=== PATIENT | female | born 1955 | race Caucasian/White ===

== ENCOUNTER 2017-10-05 07:59 | Outpatient (CLI) | payer MEDICARE, MEDICAID ==
[2017-10-05] MEDS ORDERED: Gadobenate Dimeglumine 529 MG/1 ML (20ML VIAL) ONE (09:00)
--- NOTE | 2017-10-05 11:57 | MRI ---
MRI OF THE ABDOMEN WITH AND WITHOUT IV CONTRAST: INDICATION: History of right hepatic lobe liver lesion and cirrhosis. COMPARISON: CT of the abdomen and pelvis dated 05/14/17, abdominal ultrasound dated 09/28/17, CT of the abdomen wi th and without contrast dated 08/15/16, and a CT examination of the abdomen and pelvis dated 11/18/13. TECHNIQUE: Multiplanar, multisequence MR images were obtained in the abdomen utilizing liver mass protocol. 17 cc of MultiHance was utilized for the examination. FINDINGS: The suspicious lesion within segment 6 of the right hepatic lobe measures up to 2.2 cm in size and is T2 hyperintense, with T1 hyperintensity with signal dropout consistent with some internal fat signal . The lesion demonstrates peripheral heterogeneous arterial enhancement with washout on the portal v enous and delayed phases. There is a cirrhotic morphology of the liver. No additional focal arterially enhancing lesion eviden t. The spleen is enlarged measuring 14.6 cm. There is a 1.5 cm exophytic cyst off the superior pole left kidney. There is a 1.5 cm cyst seen within the superior pole of the left kidney. There is a s mall subcentimeter cyst seen within the left kidney. No hydronephrosis is evident. No enlarged lymp h nodes are present. Visualized pancreas appears within normal limits. Respiratory motion artifact on the delayed phase images slightly limits image detail. There is recanalization of the umbilical v ein. There is mild ascites present surrounding the right hepatic lobe. IMPRESSION: 1. A 2.1 cm lesion with some internal fat signal intensity and hyperenhancement is suspicious for hep atocellular carcinoma. With the size of the lesion and presence of washout and capsule, this would b e consistent with an LR5B LI-RADS categorization. 2. Cirrhosis with findings of portal hypertension. 3. Left renal cyst. POS: [facility]
== END 2017-10-05 08:00 | disposition home or self-care (01) ==
LOC: SCSMRI 07:59
PROVIDERS: ATTEND Family Medicine
DX: R16.0 Hepatomegaly, not elsewhere classified (principal); K74.60 Unspecified cirrhosis of liver; K76.6 Portal hypertension; N28.1 Cyst of kidney, acquired
CPT/HCPCS: 74183; A9579

== ENCOUNTER 2018-12-29 11:52 | Outpatient (CLI) | payer MEDICARE, MEDICAID ==
--- NOTE | 2019-03-25 09:32 | MMO ---
Bilateral MAMMO Bilat Screen [facility]. CLINICAL HISTORY: Patient is 63 years old and is seen for screening. The patient has no family history of breast cancer. The patient has no personal history of cancer. VIEWS: The views performed were: bilateral craniocaudal with tomosynthesis and bilateral mediolateral oblique with tomosynthesis. FILMS COMPARED: The present examination has been compared to a prior imaging study performed at [facility] on 07/12/2009. MAMMOGRAM FINDINGS: There are scattered fibroglandular densities. There are benign appearing calcifications seen in both breasts. There are no suspicious masses, suspicious calcifications, or new areas of architectural distortion. IMPRESSION: THERE IS NO MAMMOGRAPHIC EVIDENCE OF MALIGNANCY. A ROUTINE FOLLOW-UP MAMMOGRAM IN 1 YEAR IS RECOMMENDED. THE RESULTS OF THIS EXAM WERE SENT TO THE PATIENT. ACR BI-RADS Category 2 - Benign finding MAMMOGRAPHY NOTE: 1. A negative mammogram report should not delay a biopsy if a dominant of clinically suspicious mass is present. 2. Approximately 10% to 15% of breast cancers are not detected by mammography. 3. Adenosis and dense breasts may obscure an underlying neoplasm.
== END 2018-12-29 11:53 | disposition home or self-care (01) ==
LOC: BICMAMMO 11:52
PROVIDERS: ATTEND Family Medicine
DX: Z12.31 Encounter for screening mammogram for malignant neoplasm of breast (principal)
CPT/HCPCS: 77063; 77067

== ENCOUNTER 2019-02-10 02:02 | Inpatient (IN) | payer MEDICARE, MEDICAID ==
[2019-02-10] MEDS ORDERED: Morphine 4 MG/ML VIAL ONE (03:09)
[2019-02-10] MEDS ORDERED: Ondansetron PF 4 MG/2 ML Vial ONE ×2 (03:09→08:24)
[2019-02-10 03:12] LABS: #Lymphocytes 1.4 thou/uL (1.20-3.40); #Monocytes 0.4 thou/uL (0.11-0.59); #Neutrophils 9.6 thou/uL (1.40-6.50); %Basophils 0.2 % (0.0-1.0); %Eosinophils 0.4 % (0.0-10.0); %Lymphocytes 12.3 % (21.0-51.0); %Monocytes 3.4 % (0.0-10.0); %Neutrophils 83.7 % (42.0-75.0); Hemoglobin 11.4 g/dL (12.0-16.0); Mean Corpuscular HGB CONC 33.9 g/dL (32.0-36.0); Mean Corpuscular Hemoglobin 31.5 pg (27.0-31.0); Mean Corpuscular Volume 92.7 fL (78.0-98.0); Mean Platelet Volume 7.2 fL (7.4-10.4); Platelet Count 246 thou/uL (130-400); RBC Distribution Width 16.8 % (11.5-14.5); Red Blood Cell (RBC) Count 3.63 mill/uL (4.20-5.40); White Blood Cell (WBC) Count 11.5 thou/uL (4.8-10.8)
[2019-02-10 03:33] LABS: ALT (SGPT) 42 U/L (8-55); AST (SGOT) 26 U/L (5-34); Albumin 3.9 g/dL (3.4-4.8); Alkaline Phosphatase 157 U/L (40-150); Anion Gap 18 mmol/L (10-20); BUN (Urea Nitrogen) 19 mg/dL (9.8-20.1); Bilirubin, Total 0.8 mg/dL (0.2-1.2); Calc. Creatinine Clearance 0 mL/min (70-130); Calcium 9.9 mg/dL (7.8-10.44); Carbon Dioxide 20 mmol/L (23-31); Chloride 103 mmol/L (98-107); Estimated GFR-MDRD 61; Globulin 3.5 g/dL (2.4-3.5); Glucose 181 mg/dL (80-115); Potassium 3.8 mmol/L (3.5-5.1); Protein, Total 7.4 g/dL (6.0-8.3); Sodium 137 mmol/L (136-145)
[2019-02-10 04:11] LABS: INR-International Normal Ratio 1.1; Prothrombin Time 13.9 SEC (12.0-14.7)
[2019-02-10] MEDS ORDERED: Promethazine HCl 25 MG/ML VIAL ONE (04:51)
--- NOTE | 2019-02-10 06:18 | PDOC.FPRHP ---
- History of Present Illness Chief Complaint: vomiting & diarrhea History of Present Illness: 63 yo F presents with 1 day non bloody emesis & diarrhea. Pt underwent liver transplant 3 week ago for liver CA/cirrhosis at [facility]. Had appt today. Since then has not experienced any illnesses, taking all her prescribed meds. Sick contact includes granddaughter. Denies recent travel or eating odd foods. Patient endorses abd pain only an incision sites. Denies fevers, chills, rash. ED Course: phenergan, zofran - Allergies/Adverse Reactions Allergies Allergy/AdvReac Type Severity Reaction Status Date / Time iodine Allergy Severe Short of Verified 04/14/16 21:18 Breath - Home Medications Medication Instructions Recorded Confirmed Type Albuterol Sulfate [Albuterol 0.63 mg NEB Q6HR PRN 04/14/16 02/25/17 History Sulfate Neb] Albuterol Sulfate [Ventolin HFA] 2 puff INH Q6HR PRN 04/14/16 02/25/17 History Lisinopril/Hydrochlorothiazide 2 tablet PO DAILY 04/14/16 02/25/17 History [Lisinopril-Hctz 20-12.5 mg Tab] Metoprolol Tartrate [Lopressor] 100 mg PO DAILY 04/14/16 02/25/17 History Omeprazole 40 mg PO DAILY 04/14/16 02/25/17 History metFORMIN HCl [Glucophage] 1,000 mg PO BID-WM 04/14/16 02/25/17 History traZODone 100 mg PO HS 04/14/16 02/25/17 History Gabapentin [Neurontin] 100 mg PO BID #0 cap 04/15/16 02/25/17 Rx Atorvastatin Calcium [Lipitor] 20 mg PO DAILY 08/04/16 02/25/17 History tiZANidine HCl [Tizanidine HCl] 4 mg PO QID PRN 08/04/16 02/25/17 History Ferrous Sulfate [Feosol] 325 mg PO BID-WM tab 02/27/17 Rx Insulin Detemir 100 UNITS/ML 74 units SC QAM vial 02/27/17 Rx [Levemir] - History PMHx: PSHx: FHx: Social: - Review of Systems General: reports: weight/appetite/sleep changes. denies: fever/chills Eyes: denies: vision changes ENT: denies: nasal congestion, rhinorrhea Respiratory: denies: cough, congestion, shortness of breath Cardiovascular: denies: chest pain, palpitation Gastrointestinal: reports: nausea, vomiting, diarrhea, abdominal pain. denies: GI bleeding Genitourinary: denies: dysuria Skin: denies: rashes, lesions Musculoskeletal: reports: pain. denies: tenderness, stiffness Neurological: reports: weakness. denies: seizure - Vital signs 135/79, Pulse: 97, Resp: 18, Temp: 99.3 (Oral), Pain: 5, O2 sat: 97 on 2L Oxygen , Time: 02/10/2019 06:00. - Physical Exam Constitutional: NAD -Constitutional: lethargic HEENT: normocephalic and atraumatic, PERRLA, EOMI, conjunctiva clear -HEENT: dry mucosal membranes Neck: supple, FROM -Chest: stapled incision on upper left chest Heart: RRR, normal S1/S2 Lungs: CTAB, no respiratory distress, good air movement Abdomen: soft, bowel sounds present -Abdomen: tender at stapled incision sites Musculoskeletal: normal structure, ROM grossly normal Neurological: no focal deficit Skin: no rash/lesions, no jaundice Heme/Lymphatic: no unusual bruising or bleeding FMR H&P: Results - Labs Result Diagrams: 02/10/19 03:01 02/10/19 03:01 Lab results: WBC 11.5 thou/uL (4.8-10.8) H 02/10/19 03:01 Hgb 11.4 g/dL (12.0-16.0) L 02/10/19 03:01 Hct 33.6 % (36.0-47.0) L 02/10/19 03:01 MCV 92.7 fL (78.0-98.0) 02/10/19 03:01 Plt Count 246 thou/uL (130-400) 02/10/19 03:01 Neutrophils % 83.7 % (42.0-75.0) H 02/10/19 03:01 Sodium 137 mmol/L (136-145) 02/10/19 03:01 Potassium 3.8 mmol/L (3.5-5.1) 02/10/19 03:01 Chloride 103 mmol/L (98-107) 02/10/19 03:01 Carbon Dioxide 20 mmol/L (23-31) L 02/10/19 03:01 BUN 19 mg/dL (9.8-20.1) 02/10/19 03:01 Creatinine 0.93 mg/dL (0.6-1.1) 02/10/19 03:01 Glucose 181 mg/dL (80-115) H 02/10/19 03:01 Lactic Acid 1.6 mmol/L (0.5-2.2) 02/10/19 03:01 Calcium 9.9 mg/dL (7.8-10.44) 02/10/19 03:01 Total Bilirubin 0.8 mg/dL (0.2-1.2) 02/10/19 03:01 AST 26 U/L (5-34) 02/10/19 03:01 ALT 42 U/L (8-55) 02/10/19 03:01 Alkaline Phosphatase 157 U/L (40-150) H 02/10/19 03:01 Serum Total Protein 7.4 g/dL (6.0-8.3) 02/10/19 03:01 Albumin 3.9 g/dL (3.4-4.8) 02/10/19 03:01 FMR H&P: A/P - Problem List (1) Liver transplant recipient Current Visit: Yes Status: Acute Code(s): Z94.4 - LIVER TRANSPLANT STATUS (2) Vomiting and diarrhea Current Visit: No Status: Acute Code(s): R11.10 - VOMITING, UNSPECIFIED; R19.7 - DIARRHEA, UNSPECIFIED (3) COPD (chronic obstructive pulmonary disease) Current Visit: No Status: Chronic Qualifiers: COPD type: unspecified COPD Qualified Code(s): J44.9 - Chronic obstructive pulmonary disease, unspecified (4) Diabetes mellitus type 2 in obese Current Visit: No Status: Chronic Code(s): E11.9 - TYPE 2 DIABETES MELLITUS WITHOUT COMPLICATIONS; E66.9 - OBESITY, UNSPECIFIED (5) History of liver cancer Current Visit: No Status: Chronic Code(s): Z85.05 - PERSONAL HISTORY OF MALIGNANT NEOPLASM OF LIVER (6) Hypertension Current Visit: No Status: Chronic Code(s): I10 - ESSENTIAL (PRIMARY) HYPERTENSION - Plan #acute hepatic cellular rejection vs. viral gastroenteritis -ER physician contacted [facility], they are at full capacity but will transfer when bed opens -In meantime will start w/u for etiology -prograf, CMV, c.diff -acute abdomen series, KUB -continue D5+1/2NS for fluids while not eating -zofran, phenergan -mild white count at 11, no fever but on immunosuppressive meds, will obtain procal, pending blood cx -continue immunosupressive meds -check Mg -admit to medical, pending [facility] bed #DM2 -sliding scale #HTN -home meds Will discuss w/ Dr. Nelson FMR H&P: Upper Level - Pertinent history 63 yo HF with a PMH of recent liver transplant at [facility] on 01/26. Pt presents due to sudden onset of nausea, vomiting, and diarrhea that began about 1500 the day prior to arrival. Pt states she has been compliant with her medications. Pt states a family member at home with similar symptoms. PCP: Dr. Jyoti Espitia - Pertinent findings VSS, afebrile Gen: drowsy but arousable in NAD CV: RRR Abd: mod TTP all quadrants, incisions c/d/i - Plan Date/Time: 02/10/19 0618 I, Celio Robb MD PGY3, have evaluated this patient and agree with findings/ plan as outlined by advisory intern resident. Pertinent changes/additions are listed here. 1. Transplant rejection vs viral gastroenteritis -Pt presents with recent transplant and subsequent immunosuppression. Attempt was made to transfer pt from ER to [facility] but pt was declined due to facility being full. -Transplant specialist recommended workup to [facility] to include c diff screen, CMV , acute abdomen series, RUQ US to rule out biliary obstruction, and prograf level. -Will admit pt to inpatient medical while awaiting transfer to [facility]. -No recommendations were made for abx therapy. Will obtain procalcitonin. Blood cultures obtained in ER. -Continue IVF and symptomatic management. disposition: Admit under inpatient status for anticipated length of stay greater than two midnights, pending clinical course. Addendum - Attending - Attending Attestation Date/Time: 02/10/19 7031 I personally evaluated the patient and discussed the management with Dr. Aguilar I agree with the History, Examination, Assessment and Plan documented above with any addition or exceptions noted below. 63 yo DM, HTN, COPD,HX CAD s/p 4 V CABG female with history PALACIO cirrhosis progression to heptocellular Carcinoma s/p liver transplant [facility] January 26 2019 patient was dismissed from Hospital Thursday. She endorses sick contact with [facility] with probable viral AGE. Patient presents with N/V/D. Concern with rejection verse colitis related to recent sick contact and attempt was made to transfer to [facility] beds available recommendations discussed with transplant physician and with continue symptomatic support and fluid replacement. WBC slightly elevated at 11,00 BS wnl stool studies,lactoferrin ,C&S, C. difficile,cult ,O&P and LFT obtained as well as prograf level and GGT will attempt transport as bed available. Abdomen wound site is clean healing well.
[2019-02-10 06:49] LABS: Magnesium 1.4 mg/dL (1.6-2.6)
--- NOTE | 2019-02-10 07:28 | ULT ---
HEPATIC DOPPLER EVALUATION WITH BENÍTEZ SCALE AND DOPPLER COLOR FLOW IMAGING: Date: 02/10/19 CLINICAL HISTORY: Vomiting, history of liver transplant. FINDINGS: The patient is reported as status post cholecystectomy. Doppler flow does reveal appropriate patency and flow of the hepatic and portal vein systems. There is a cirrhotic morphology of the liver. There is a focus of altered echotexture, predominantly hypoechoic at the right perihepatic region, nonspeci fic.Arterial waveforms are elicited from the hepatic and splenic arteries. There is nonspecific promi nence of the pancreatic duct. This measures between 2-3 mm. IMPRESSION: 1. Doppler evaluation reveals appropriate patency and flow. 2. Nonvisualization of gallbladder. 3. Complex focal echotexture of the right perihepatic region, nonspecific. Mass is not excluded. Con orthodontic technician follow-up with contrast enhanced CT exam for further evaluation. POS: [facility]
--- NOTE | 2019-02-10 07:43 | RAD ---
Exam: Single view of the chest and 2 views of the abdomen HISTORY: Nausea, vomiting, and diarrhea COMPARISON: None FINDINGS: 2 views of the abdomen and a single view the chest shows a nonspecific, nonobstructive goyo l gas pattern. No free air or air-fluid levels are seen and upright examination. Surgical clips are s een in the upper abdomen. A Chevron incision with overlying skin yvrose is seen. The cardiomediastinal silhouette is normal in size. There is no evidence of consolidation, mass, or p leural effusion. There is a dialysis catheter with its tip in the superior vena cava. Surgical clips project over the right chest wall. IMPRESSION: Nonobstructive bowel gas pattern
[2019-02-10 08:28] LABS: Bilirubin Small (Negative); Blood, Urine Negative (Negative); Clarity CLOUDY (Clear); Glucose, Urine (Dipstick) Negative (Negative); Leukocyte Negative (Negative); Nitrite Negative (Negative); Protein, Urine (Dipstick) 100 mg/dL (Neg-Trace); Specific Gravity, Urine 1.025 (1.002-1.036); Urobilinogen 0.2 mg/dL (0.2-1.0); pH, Urine 5.5 (5.0-9.0)
[2019-02-10 08:30] LABS: RBC/HPF 0-3 HPF (0-3)
[2019-02-10 08:34] LABS: Pathc Cast-AUWi Flag 33.18 (0-2.49)
[2019-02-10 08:46] LABS: Bacteria/HPF Rare-Few HPF (None Seen); Renal Epithelial 0-3 HPF (0-3); Transitional Epithelial 0-3 HPF (0-3)
[2019-02-10 08:47] LABS: Hyaline Casts/LPF 0-3 HYALINE CAST LPF (0-3 Hyaline); Manual Microscopic Reviewed? No Path Casts Seen
[2019-02-10] MEDS ORDERED: Ondansetron ODT 4 MG TAB PO PRN (08:56)
[2019-02-10] MEDS ORDERED: Ondansetron PF 4 MG/2 ML Vial IVP PRN (08:56)
[2019-02-10] MEDS ORDERED: Promethazine HCl 25 MG/ML VIAL IM/IV PRN (10:00)
[2019-02-10 11:16] LABS: Lactic Acid 1.4 mmol/L (0.5-2.2)
[2019-02-10 11:20] LABS: Anion Gap 18 mmol/L (10-20); BUN (Urea Nitrogen) 17 mg/dL (9.8-20.1); Calc. Creatinine Clearance 0 mL/min (70-130); Calcium 9.2 mg/dL (7.8-10.44); Carbon Dioxide 16 mmol/L (23-31); Chloride 107 mmol/L (98-107); Estimated GFR-MDRD 81; Glucose 213 mg/dL (80-115); Potassium 3.5 mmol/L (3.5-5.1); Sodium 137 mmol/L (136-145)
[2019-02-10] MEDS ORDERED: Morphine 2 MG/ML SYRINGE ONE (14:34)
[2019-02-10 14:49] LABS: #Lymphocytes 0.9 thou/uL (1.20-3.40); #Monocytes 0.4 thou/uL (0.11-0.59); #Neutrophils 7.8 thou/uL (1.40-6.50); %Basophils 0.5 % (0.0-1.0); %Eosinophils 0.1 % (0.0-10.0); %Monocytes 4.2 % (0.0-10.0); %Neutrophils 85.2 % (42.0-75.0); Hemoglobin 10.9 g/dL (12.0-16.0); Mean Corpuscular HGB CONC 33.8 g/dL (32.0-36.0); Mean Corpuscular Hemoglobin 31.4 pg (27.0-31.0); Mean Corpuscular Volume 92.8 fL (78.0-98.0); Mean Platelet Volume 7.2 fL (7.4-10.4); Platelet Count 220 thou/uL (130-400); RBC Distribution Width 16.5 % (11.5-14.5); Red Blood Cell (RBC) Count 3.48 mill/uL (4.20-5.40); White Blood Cell (WBC) Count 9.1 thou/uL (4.8-10.8)
[2019-02-10] MEDS ORDERED: Acetaminophen 650 MG in Premix Bag 1 BAG IVPB SCH (15:30)
--- NOTE | 2019-02-10 16:13 | PDOC.EVN ---
Event Note - Event Note Event Note: Paged by ER about patient's status at approx 3:00. Patient had received an additional 2mg morphine and a second fluid NS bolus 500ml for a total of 2L bolus today on top of the 125ml/hr D5NS. Patient reported feeling chilled. HR 130s. Rectal temperature checked and found to be 104.4. BP 160s/90s. RR: 26. Patient is arousable but difficult to answer questions. #sirs with concern for sepsis CXR Bld and urine cx procal repeat cbc and cmp vanc and zosyn Changed patient's status to [facility] Called transfer center at 3:18 to update them of the patient's declining status and asked them to update [facility] where our transfer is being requested. Addendum - Attending - Attending Attestation Date/Time: 02/10/19 1700 I personally evaluated the patient and discussed the management with Dr. Eastman I agree with the History, Examination, Assessment and Plan documented above Patient not doing well with fever and continued tachycardia BP stable at present she c/o abdominal cramping continued N/V/D panculture and started broad spectrum antibiotic transfer to MICU as bed available. Patient not able to tolerate immunosuppressant RX this AM due to N/V. How spoken with our infection prevention coordinator to expedite moving patient to transplant center. Family and patient aware of our concerns and care plans.
[2019-02-10 16:21] LABS: ALT (SGPT) 34 U/L (8-55); AST (SGOT) 22 U/L (5-34); Albumin 3.7 g/dL (3.4-4.8); Alkaline Phosphatase 171 U/L (40-150); Anion Gap 16 mmol/L (10-20); BUN (Urea Nitrogen) 17 mg/dL (9.8-20.1); Bilirubin, Total 1.1 mg/dL (0.2-1.2); Calc. Creatinine Clearance 0 mL/min (70-130); Calcium 8.9 mg/dL (7.8-10.44); Carbon Dioxide 17 mmol/L (23-31); Chloride 108 mmol/L (98-107); Estimated GFR-MDRD 72; Globulin 3.2 g/dL (2.4-3.5); Glucose 215 mg/dL (80-115); Potassium 3.2 mmol/L (3.5-5.1); Protein, Total 6.9 g/dL (6.0-8.3); Sodium 138 mmol/L (136-145)
[2019-02-10] MEDS ORDERED: Piperacillin/Tazobactam 4.5 GM VIAL ONE (16:30)
[2019-02-10] MEDS ORDERED: Vancomycin HCl 1.5 GM in Sodium Chloride 0.9% 250 ML 300 ML IVPB SCH (17:00)
[2019-02-10] MEDS ORDERED: predniSONE 20 MG TAB PO SCH (17:00)
[2019-02-10] MEDS ORDERED: Ibuprofen 800 MG TAB ONE (17:14)
[2019-02-10] MEDS ORDERED: Sodium Chloride 0.9% 1,000 ML IV SCH (17:15)
[2019-02-10] MEDS ORDERED: Ibuprofen 100 MG/5 ML UDCUP PO SCH (17:15)
[2019-02-10] MEDS ORDERED: Ibuprofen 100 MG/5 ML UDCUP ONE (17:16)
[2019-02-10] MEDS ORDERED: Dextrose 5 % And 0.9 % NaCl 1,000 ML IV SCH (17:45)
[2019-02-10] MEDS ORDERED: NS 0.9% w/ 40 MEQ KCL 1,000 ML IV SCH (17:45)
[2019-02-10 18:24] LABS: Lactic Acid 2.3 mmol/L (0.5-2.2)
--- NOTE | 2019-02-10 19:35 | RAD ---
PORTABLE CHEST ONE VIEW 02/10/19 at 6:22 p.m. HISTORY: Central line placement. FINDINGS/IMPRESSION: There is a left sided subclavian venous catheter with tip in the projection of the SVC. There is a ri ght internal jugular central venous catheter with tip in the projection of the cavoatrial junction. T here is atelectatic changes in the right lung base with elevation of the right hemidiaphragm. There a re plates of atelectatic change in the left lower lung. No pneumothoraces are identified. The heart size is normal. There are degenerative changes in the spine. POS: [facility]
[2019-02-10] MEDS ORDERED: Norepinephrine 8 MG/0.9% NS 250 ML ONE (19:44)
[2019-02-10] MEDS ORDERED: Succinylcholine Chloride 20 MG/ML 10 ml SYRINGE FS ONE (19:54)
[2019-02-10] MEDS ORDERED: Propofol 1,000 MG/100 ML VIAL IV ONE (20:06)
[2019-02-10 20:09] LABS: Actual Bicarbonate (HCO3a) 15.2 mEq/L (22-28); Analyzer IN Cardio ER; Base Excess (BEa) -10.6 mEq/L (-2.0 to +3.0); CO2 Tension 33.4 mmHg (35.0-45.0); Calcium, Ionized 1.12 mmol/L (1.12-1.30); Hemoglobin (Hb) 9.8 g/dL (12.0-16.0); O2 Tension (PaO2) 111.2 mmHg (> 80.0); Potassium - ABG Lab 3.17 mmol/L (3.70-5.30); pH, Arterial 7.28 (7.35-7.45)
[2019-02-10 20:10] LABS: Puncture Site RBRACH
--- NOTE | 2019-02-10 20:43 | RAD ---
PORTABLE CHEST ONE VIEW: 02/10/19 at 8:06 p.m. HISTORY: Respiratory failure. FINDINGS/IMPRESSION: Comparison made with earlier exam of 6:22 p.m. from the same date. There has been interval placement of an endotracheal tube with tip below the level of the clavicular heads but above the level of the kamaljit. The remainder of the exam is otherwise stable. POS: [facility]
[2019-02-10] MEDS ORDERED: Tacrolimus 1 MG CAP PO SCH (21:00)
[2019-02-10] MEDS ORDERED: Mycophenolate 250 MG CAP PO SCH (21:00)
--- NOTE | 2019-02-10 21:28 | PDOC.EVN ---
Event Note - Event Note Event Note: Dr Norbert Nelson called me about 6pm tonight to give check about patient. He informed me that Ms. Montes had been denied transfer to [facility] but that efforts had been made all day. She had developed fever and tachycardia during the afternoon. A CVC had been placed by the ER physician. I promptly went to the hospital and received check out from Dr. Eastman who was part of the day team caring for her. He had been attempting most of the day to facilitate transfer. He had spoken to Dr Blank our CC/Parking Patroller who noted transfer to [facility] ([facility]) was the critical piece of her her care as we did not have the facility to do so. About this time Dr Eastman was able to speak with Dr Lopez at [facility] who accepted the patient but was still waiting for admin approval/bed. Our team attended to the patient in the ER. Noting her tachycardia and progressive hypoxia we gave a fluid bolus of 1L of NS and changed her from NC to Ventimask. Dr. Eastman spoke again with Dr Lopez who recommended ET placement prior to transfer in light of her deteriorating condition. After a discussion with Slime and her family about ET placement she first did not consent,a decision which we honored. But several minutes later she changed her mind and gave consent. Once appropriate preparations were made , the patient was successfully intubated by the ER physician without difficulty. Although Slime had not had hypotension we were concerned about its development both from her sepsis and her sedatives. Several minutes following intubation she did have a MAP <65 and levophed was initiated. Amikacin was started at the request of Dr. Lopez. CXR confirmed ET tube placement, which was close to the kamaljit, so the ET tube was back up about 2 cm. About this time admin approval was granted by [facility] and patient was transferred via helicopter shortly thereafter. Ms. Montes's family was appreciative of our care.
--- NOTE | 2019-02-11 08:04 | DIS ---
DATE OF ADMISSION: 02/10/2019 DATE OF DISCHARGE: 02/10/2019 RESIDENT: Nhan Eastman DO ADMITTING ATTENDING: Dr. Naren Nelson DISCHARGE ATTENDING: Dr. Yonas Shane CONSULTS: Discussion of the case was made by: 1. Dr. Blank of pulmonology. 2. Dr. Ch and Dr. Hernandez of Gastroenterology. 3. Dr. Lewis of General Surgery. 4. Additionally, Dr. Lopez of Transplant Surgery in [place] at [facility], was also involved in consultation of the case. PROCEDURES: 1. Central line right IJ were placed on 02/10/2019. 2. Abdominal ultrasound at 0620 hours showed Doppler evaluation revealing appropriate patency and flow of the hepatic and portal vein system; nonvisualization of the gallbladder; complex echotexture of the right perihepatic region, nonspecific. 3. Acute abdomen series showing nonobstructive bowel gas pattern. PRIMARY DIAGNOSES: 1. Sepsis secondary to suspected liver transplant rejection. 2. Gastroenteritis. SECONDARY DIAGNOSES: 1. Liver transplant recipient. 2. Chronic obstructive pulmonary disease. 3. Type 2 diabetes and obese. 4. History of liver cancer. 5. Hypertension. DISCHARGE MEDICATIONS: 1. Amikacin 500mg p.o. b.i.d. 2. Vancomycin 1.5 g p.o. q.12. 3. Zosyn 4.5 g q.6 hours. 4. Valganciclovir 450 mg p.o. q.a.m. with meal scheduled. 5. Prograf (tacrolimus) 3 mg p.o. b.i.d. scheduled. 6. Mycophenolate (CellCept) 1000 mg p.o. b.i.d. DISCONTINUE MEDICATIONS: None. HISTORY OF PRESENT ILLNESS AND HOSPITAL COURSE: In brief, a 63-year-old female who presented to the ER with nausea and vomiting on the previous day. On January 26, 2019, the patient had a liver transplant at [facility]. Per the ER records, the patient arrived in the ER at approximately midnight, and approximately at 4:10 a.m., records showed that ER doctor initiated transfer at 0435 hours, transfer was declined due to capacity. We were told to admit the patient and re-initiate transfer once the patient was admitted. Therefore, the patient was admitted with recommendations to obtain Prograf level as well as get abdominal x-ray. Additionally, recommendations were made for stool studies as well as CMV. Stools studies including Clostridium difficile were negative. All imaging was unremarkable for biliary causes as well as bowel obstruction. Transfer center was called at approximately 10:00 a.m. as there was misunderstanding that the transfer had not already been initiate up until that point. At approximately 1:00 p.m., ER called with updates that the patient was having heart rate in the 110s with blood pressure stable and actually slightly elevated. At this time, the patient was given fluid bolus 500 mL and continued on maintenance fluids. At this time, the transfer center was also called for update with no significant progress made at that time. At approximately 3:00 p.m., rectal temperature was obtained which was 104.4, blood pressure 167/102, heart rate 146 , respiratory rate 26, and oxygen saturation 93% on 2 L of oxygen, at that time, blood cultures and urine were ordered; however, they have already been ordered previously in the day. Vancomycin and Zosyn were ordered at this time as well and a chest x-ray repeat was ordered. Additionally, procalcitonin was ordered as well as lactic acid. Procalcitonin was 0.42, which was up from 0.28 on admission. Lactic acid was 2.3 and it was 1.6 on admission. Other pertinent labs: CBC and CMP were also repeated. CBC significant for white count of 9.1, H/H at 10.9/32.3, neutrophils 85% which was consistent with admission, and platelets 220. Her AST/ALT 22/34, alkaline phosphatase 171. Additionally, IV Tylenol 650 was given. Again, the transfer center was called at 1419 hours with no significant updates made. Transfer center was also called at 1518 hours and 1634 hours, 1653 hours, 1801 hours, and 1840 hours. Additionally, at approx 13:00, I attempted to call the transfer center at [facility] in an attempt to talk with someone on the transplant team to discuss the case and situation. I was told to go thru our transfer center and they would contact the hospital. The first time I was able to speak with anyone on the transplant team was approximately 6:40 in the evening. At 1715 hours, after IV Tylenol, the patient's rectal temperature was re-checked , found to be 105.2, blood pressure 116/75, heart rate 145, respirations 34, saturation 93% on 3 L. The patient again was given a liter of bolus at this time and due to the patient's decline in blood pressure, despite the fact that it was still an appropriate mean arterial pressure, there was concern for continue deterioration, therefore, a central line was placed by the ER doctor, Dr. Martinez in the right IJ with no significant complications, location confirmed with x- ray. At approximately 6:00pm, I was informed that the patient was accepted at [facility] , but there were no beds available for the patient. I again attempted to contact the transfer center for further recommendations or to be able to speak with a transplant physician for further recommendations. At approximately 0630 hours, I spoke with the ICU doctor as the patient was in the process of being admitted to the ICU due to the patient's continued deteriorating status and no recommendations from the transplant center. His recommendation was to get in contact with hospital administration prior to this happening. After this conversation, the transfer center contacted me and put me in contact with Dr. Lopez who was part ot the patient's transplant surgery and the case was discussed with recommendations to transfer the patient via [facility]. Around the same time, central line was being completed and vital signs were beginning to drop, blood pressure 103/59, pulse 142, respirations 34, oxygen saturation 92% on 4 L of oxygen. Soon the patient was requiring Ventimask at 50%. Further discussion with Dr. Lopez at 15:30 giving the update that the patient's vital signs were deteriorating, recommendation was made to intubate the patient for transfer, which was accomplished again by ER doctor, Dr. Martinez with etomidate and succinate. The patient was started on propofol after successful intubation confirmed by x-ray. Levophed was also utilized to maintain blood pressures as the lowest blood pressure reading in the ER shortly after intubation was 86/52 with a pulse of 116. During the decision to intubate the patient, the case and situation were discussed with the patient's daughter and the patient herself with both agreeing that, this was acceptable and appropriate course of action. At approximately 8:45 pm, the patient was taken to [facility] and left via helicopter at approximately 8:51 p.m. DISPOSITION: Guarded. DISCHARGE INSTRUCTIONS: Location: To [facility] under the care of Dr. Lopez. Job ID: [id number] [facility]
--- NOTE | 2019-02-23 11:46 | PQF ---
NAVEEN ANNE GABRIEL MD [id number] [facility] [id number] CLINICAL DOCUMENTATION CLARIFICATION FORM: POST DISCHARGE Please exercise your independent, professional judgment in responding to the clarification form. Clinical indicators are provided on the bottom of this form for your review Please check appropriate box(s): [ x ] Septic Shock [ ] Shock Unspecified [ ] Other diagnosis [ ] Unable to determine In addition, please specify: Present on Admission (POA): [ ] Yes [ ] No [ x ] Unable to determine CLINICAL INDICATORS - SIGNS / SYMPTOMS / LABS 02/10 DS, "Levophed was also utilized to maintain blood pressure as the lowest blood pressure reading in the ER shortly after intubation was 86/52 with a pulse of 116" 02/10 LABS LACTIC ACID 1.6, 2.3, PROCALCITONIN, 0.28, 0.42 02/10 DS, VITAL SIGNS, RESPIRATIONS 34, O2 SAT 92% ON 4 L OF OXYGEN RISK FACTORS 02/10 DS, TRANSFER DIAGNOSES; SEPSIS, SUSPECTED LIVER TRANSPLANT REJECTION, COPD , HTN RECENT TRANSPLANT SURGERY TREATMENTS: 02/10 Inotropes / vasopressors LEVOPHED 02/10 Maximizing oxygenation INTUBATION AND VENTILATION 02/10 IV Antibiotics VANCOMYCIN 1.5 GM (This form is maintained as a part of the permanent medical record) 2014 [employer], [employer]. All Rights Reserved [email or web address] [phone] MTDD
--- NOTE | 2019-02-23 12:01 | PQF ---
NAVEEN ANNE GABRIEL A MD [id number] [facility] [id number] CLINICAL DOCUMENTATION CLARIFICATION FORM: POST DISCHARGE Please exercise your independent, professional judgment in responding to the clarification form. Clinical indicators are provided on the bottom of this form for your review Please check appropriate box(s): [ x ] Acute Respiratory Failure: [ x ] with Hypoxia[ ] with Hypercapnia [ ] Acute Respiratory Failure due to: (etiology) [ ] ARDS (Acute Respiratory Distress Syndrome) [ ] Hypoxia [ ] Other diagnosis [ ] Unable to determine In addition, please specify: Present on Admission (POA): [ ] Yes [ ] No [ x ] Unable to determine CLINICAL INDICATORS - SIGNS / SYMPTOMS / LABS 02/10 DS, VITAL SIGNS, RESPIRATIONS 34, O2 SAT 92% ON 4 L OF OXYGEN 02/10 EVENT NOTE, "PROGRESSIVE HYPOXIA" 02/10 LABS LACTIC ACID 1.6, 2.3, PROCALCITONIN, 0.28, 0.42 RISK FACTORS 02/10 DS, TRANSFER DIAGNOSES; SEPSIS, SUSPECTED LIVER TRANSPLANT REJECTION, COPD , HTN RECENT TRANSPLANT SURGERY 02/10 ER NOTE, FORMER SMOKER TREATMENTS: 02/10 INTUBATION AND VENTILATION PRIOR TO TRANSFER 02/10 SUPPLEMENTAL OXYGEN 02/10 MAR PREDNISONE 20 MG PO (This form is maintained as a part of the permanent medical record) 2014 [employer], [employer]. All Rights Reserved [email or web address] [phone] MTDD
== END 2019-02-10 20:42 | disposition short-term general hospital (02) | DRG 441 ==
LOC: ERS 02:02 → ERHOLD 05:00
PROVIDERS: ADMIT Family Medicine; ATTEND Family Medicine
PROC: 5A1935Z Respiratory Ventilation, Less than 24 Consecutive Hours (ICD-10-PCS; principal; 2019-02-10)
PROC: 0BH17EZ Insertion of Endotracheal Airway into Trachea, Via Natural or Artificial Opening (ICD-10-PCS; 2019-02-10)
PROC: 3E043XZ Introduction of Vasopressor into Central Vein, Percutaneous Approach (ICD-10-PCS; 2019-02-10)
PROC: 02HV33Z Insertion of Infusion Device into Superior Vena Cava, Percutaneous Approach (ICD-10-PCS; 2019-02-10)
DX: T86.41 Liver transplant rejection (principal); J96.01 Acute respiratory failure with hypoxia; T81.12XA Postprocedural septic shock, initial encounter; T81.44XA Sepsis following a procedure, initial encounter; A08.4 Viral intestinal infection, unspecified; E11.9 Type 2 diabetes mellitus without complications; I25.10 Atherosclerotic heart disease of native coronary artery without angina pectoris; Z85.05 Personal history of malignant neoplasm of liver; I10 Essential (primary) hypertension; J44.9 Chronic obstructive pulmonary disease, unspecified; Z95.1 Presence of aortocoronary bypass graft; Z87.891 Personal history of nicotine dependence; Z79.82 Long term (current) use of aspirin; Z79.4 Long term (current) use of insulin; Z79.52 Long term (current) use of systemic steroids; Y83.0 Surgical operation with transplant of whole organ as the cause of abnormal reaction of the patient, or of later complication, without mention of misadventure at the time of the procedure
CPT/HCPCS: 31500; 36415; 36416; 36556; 51702; 71045; 74022; 76705; 80053; 80197; 81003; 81015; 82274; 82805; 82977; 83605; 83630; 83735; 84145; 85025; 85610; 85730; 87040; 87045; 87046; 87086; 87324; 87449; 87899; 93005; 96361; 96365; 96366; 96367; 96375; 96376; 99292; A4353; J0131; J0278; J2270; J2405; J2543; J2550; J2704; J3370; J3475; J3480; J3490; J7050; J7507; J7517; J8499

== ENCOUNTER 2019-03-30 13:02 | Emergency (ER) | payer MEDICARE, MEDICAID ==
[2019-03-30 13:45] LABS: #Eosinphils 0.1 thou/uL (0.0-0.7); #Lymphocytes 1.5 thou/uL (1.20-3.40); #Monocytes 0.4 thou/uL (0.11-0.59); #Neutrophils 4.3 thou/uL (1.40-6.50); %Basophils 0.5 % (0.0-1.0); %Lymphocytes 23.5 % (21.0-51.0); %Monocytes 6.1 % (0.0-10.0); %Neutrophils 68.9 % (42.0-75.0); Hemoglobin 9.1 g/dL (12.0-16.0); Mean Corpuscular HGB CONC 35.2 g/dL (32.0-36.0); Mean Corpuscular Hemoglobin 30.1 pg (27.0-31.0); Mean Corpuscular Volume 85.5 fL (78.0-98.0); Mean Platelet Volume 7.3 fL (7.4-10.4); Platelet Count 260 thou/uL (130-400); RBC Distribution Width 14.9 % (11.5-14.5); Red Blood Cell (RBC) Count 3.03 mill/uL (4.20-5.40); White Blood Cell (WBC) Count 6.2 thou/uL (4.8-10.8)
[2019-03-30 14:02] LABS: ALT (SGPT) 8 U/L (8-55); AST (SGOT) 12 U/L (5-34); Albumin 3.6 g/dL (3.4-4.8); Alkaline Phosphatase 141 U/L (40-150); Anion Gap 14 mmol/L (10-20); BUN (Urea Nitrogen) 18 mg/dL (9.8-20.1); Bilirubin, Total 0.3 mg/dL (0.2-1.2); Calc. Creatinine Clearance 0 mL/min (70-130); Calcium 9.7 mg/dL (7.8-10.44); Carbon Dioxide 19 mmol/L (23-31); Chloride 103 mmol/L (98-107); Estimated GFR-MDRD 46; Globulin 3.4 g/dL (2.4-3.5); Glucose 126 mg/dL (80-115); Lipase 4 U/L (8-78); Potassium 4.3 mmol/L (3.5-5.1); Sodium 132 mmol/L (136-145)
[2019-03-30] MEDS ORDERED: Dicyclomine 20 MG TAB ONE (14:13)
--- NOTE | 2019-03-30 15:25 | CT ---
CT ABDOMEN AND PELVIS WITHOUT IV CONTRAST: Date: 03/30/19 HISTORY: 63-year-old female with history of liver transplant, now with diarrhea. COMPARISON: Prior MRI of the abdomen with and without contrast dated 10/05/17. FINDINGS: There is air space consolidation of right lower lobe with small right pleural effusion. There is subs egmental atelectasis involving the left lung base. There is postprocedural change of a liver transplant. Unopacified liver is unremarkable appearing. Left renal cysts are stable. No hydronephrosis evident. There is severe vascular calcification involving the abdominopelvic vasculature. Unopacified pancreas and spleen appear within normal limits. Visualized unopacified adrenal glands appear within normal limits. No lymphadenopathy is noted. There is fluid density seen within the colon which may reflect mild coli tis or diarrheal state. The appendix is not definitely seen. No drainable internal fluid collection is evident. The uterus is surgically absent. The bladder, rectum, and perirectal soft tissues are unremarkable appearing. There is diffuse osteopenia. There is scattered degenerative and osteoarthritic change. No definite a cute osseous abnormality is noted. IMPRESSION: 1. Right lower lobe pneumonia with parapneumonic effusion. 2. Left renal cysts. 3. Fluid density seen within the colon can be seen with diarrheal state or mild colitis. POS: TPC
== END 2019-03-30 15:07 | disposition home or self-care (01) ==
LOC: ERS 13:02
DX: R19.7 Diarrhea, unspecified (principal); R11.10 Vomiting, unspecified; I25.10 Atherosclerotic heart disease of native coronary artery without angina pectoris; E11.9 Type 2 diabetes mellitus without complications; E78.5 Hyperlipidemia, unspecified; I10 Essential (primary) hypertension; Z87.891 Personal history of nicotine dependence; Z79.899 Other long term (current) drug therapy; Z79.82 Long term (current) use of aspirin; Z79.4 Long term (current) use of insulin
CPT/HCPCS: 36415; 74176; 80053; 83605; 83690; 85025

== ENCOUNTER 2020-05-29 07:52 | Outpatient (CLI) | payer MEDICARE, MEDICAID ==
--- NOTE | 2020-05-29 08:48 | CT ---
EXAM: CT of the chest with contrast HISTORY: Liver cancer. Evaluate for metastatic disease COMPARISON: None TECHNIQUE: Multiple contiguous axial images were obtained in a CT the chest with contrast. Coronal an d sagittal reformats were performed. FINDINGS: HEART: Normal in size without focal cardiac abnormality. Calcifications in the coronary arteries and aorta. MEDIASTINUM: No hilar or mediastinal lymphadenopathy. LUNGS: No focal infiltrates, nodules, or masses. PLEURAL SPACE: No pneumothorax or pleural effusion. CHEST WALL SOFT TISSUES: Unremarkable OSSEOUS STRUCTURES: Degenerative changes in the spine. VISUALIZED SUBDIAPHRAGMATIC STRUCTURES: Status post liver transplant. There is a 1.7 cm cyst in the l eft kidney. IMPRESSION: No evidence of intrathoracic metastatic disease
--- NOTE | 2020-05-29 10:08 | MRI ---
MR of the abdomen with and without IV contrast INDICATION: History of liver transplant, cholecystectomy and hepatocellular carcinoma TECHNIQUE: Multiplanar multisequence MR images were obtained of the abdomen with and without contrast utilizing MRCP protocol. Contrast: 20 cc of MultiHance was utilized. COMPARISON: MRI of the abdomen with and without contrast dated October 15, 2017, CT of the chest wit h contrast dated May 29, 2020, CT of the abdomen and pelvis without contrast dated December 17, [address] the abdomen and pelvis without contrast dated May 14, 2017 FINDINGS: Liver: There is postprocedural change consistent with a liver transplant. Susceptibility artifact fro m surgical clips within the sheryl hepatis and in the posterior right upper abdomen is similar to the comparison. No focal signal abnormality or region of abnormal enhancement is demonstrated. Gallbladder and biliary system: The gallbladder is surgically absent.The common bile duct measures: 0.7 cm. Previously placed common bile duct stent has been removed. Pancreas: Normal appearing. Adrenal glands: Normal appearing. Kidneys: Slight prominence of the right renal collecting system is stable possibly reflecting an unde rlying chronic UPJ obstruction. Bilateral renal cysts are stable. Spleen: Spleen remains enlarged measuring 17 cm Retroperitoneum and peritoneal cavity: Small amount of loculated ascites adjacent to the right hepati c lobe is stable. Osseous structures: Bone marrow signal intensity is within normal limits. IMPRESSION: 1. Postprocedural change of a liver transplant and cholecystectomy. 2. No suspicious signal abnormality or region of abnormal enhancement seen within the transplanted li gerardo. 3. Interval removal of the common bile duct stent with the common bile but measures up to 7 mm. 4. Stable mild prominence of the right renal collecting system probably reflective of underlying lean manufacturing specialist boom UPJ obstruction. Bilateral renal cysts. 5. Splenomegaly. 6. Mild ascites
--- NOTE | 2020-05-29 12:15 | NM ---
WHOLE BODY BONE SCAN: HISTORY: History of liver cancer RADIOPHARMACEUTICAL: 32.5 mCi technetium 99m-MDP injected intravenously COMPARISON:CT of the thorax dated May 29, 2020 and January 16, 2013. Comparisons are also made with a prior CTA of the thorax dated April 14, 2016 CORRELATION: None FINDINGS: No suspicious focus of radiotracer activity is seen involving the axial and appendicular skeleton to suggest osteoblastic metastatic disease. There is a photopenic defect involving the left inferior aspect of the sternal body corresponding to a well-corticated lucency of the sternum likely related t o sequela of postsurgical debridement and osteomyelitis of the sternotomy site. There areas of degenerative activity involving the shoulders, sternoclavicular joints, spine, knees, ankles and feet . IMPRESSION: No scintigraphic evidence of osseous metastatic disease.
[2020-05-29] MEDS ORDERED: Iopamidol 370 76% 100 ML VIAL ONE (15:37)
[2020-05-29] MEDS ORDERED: Magnevist 469MG/ML 20 ML VIAL ONE (15:55)
== END 2020-05-29 07:53 | disposition home or self-care (01) ==
LOC: CT 07:52
PROVIDERS: ATTEND Transplant Surgery
DX: C22.0 Liver cell carcinoma (principal); E55.9 Vitamin D deficiency, unspecified; N28.1 Cyst of kidney, acquired; R16.2 Hepatomegaly with splenomegaly, not elsewhere classified; R18.8 Other ascites; Z94.4 Liver transplant status; Z90.49 Acquired absence of other specified parts of digestive tract
CPT/HCPCS: 71260; 74183; 78306; 82565; A9503; A9579; Q9967

== ENCOUNTER 2020-07-05 09:01 | Outpatient (CLI) | payer MEDICARE, MEDICAID ==
--- NOTE | 2020-07-05 10:01 | MMO ---
Bilateral MAMMO Bilat Screen [facility]. CLINICAL HISTORY: Patient is 65 years old and is seen for screening. The patient has the following family history of breast cancer: mother, malignant (generic); maternal aunt, malignant (generic) and cousin female, malignant (generic). The patient has no personal history of cancer. VIEWS: The views performed were: bilateral craniocaudal with tomosynthesis; bilateral mediolateral oblique with tomosynthesis; and right mediolateral oblique. FILMS COMPARED: The present examination has been compared to prior imaging studies performed at [facility] on 07/12/2009 and 12/29/2018, and at [facility] on 12/15/2017. This study has been interpreted with the assistance of computer-aided detection. MAMMOGRAM FINDINGS: There are scattered fibroglandular densities. Benign calcifications are noted bilaterally. There are no suspicious masses, suspicious calcifications, or new areas of architectural distortion. IMPRESSION: THERE IS NO MAMMOGRAPHIC EVIDENCE OF MALIGNANCY. A ROUTINE FOLLOW-UP MAMMOGRAM IN 1 YEAR IS RECOMMENDED. THE RESULTS OF THIS EXAM WERE SENT TO THE PATIENT. ACR BI-RADS Category 2 - Benign finding MAMMOGRAPHY NOTE: 1. A negative mammogram report should not delay a biopsy if a dominant of clinically suspicious mass is present. 2. Approximately 10% to 15% of breast cancers are not detected by mammography. 3. Adenosis and dense breasts may obscure an underlying neoplasm. Reported by: XAVI SOUZA MD Electonically Signed: [id number]
== END 2020-07-05 09:02 | disposition home or self-care (01) ==
LOC: BICMAMMO 09:01
PROVIDERS: ATTEND Family Medicine
DX: Z12.31 Encounter for screening mammogram for malignant neoplasm of breast (principal); Z80.3 Family history of malignant neoplasm of breast
CPT/HCPCS: 77063; 77067

== ENCOUNTER 2021-02-05 11:15 | Outpatient (CLI) | payer MEDICARE, MEDICAID | END 2021-02-05 11:16 | disposition home or self-care (01) | LOC: DTY/OP 11:15 | PROVIDERS: ATTEND Family Medicine | DX: E11.9 Type 2 diabetes mellitus without complications (principal) | CPT/HCPCS: 97802 ==

== ENCOUNTER 2021-06-11 05:39 | Inpatient (IN) | payer MEDICARE, MEDICAID ==
[2021-06-06 13:17] LABS: Hemoglobin 10.9 g/dL (12.0-15.5); Mean Corpuscular HGB CONC 32.1 g/dL (32.0-36.0); Mean Corpuscular Hemoglobin 28.1 pg (27.0-33.0); Mean Corpuscular Volume 87.6 fl (81.6-98.3); Mean Platelet Volume 12.2 fl (7.4-10.4); RBC Distribution Width 14.4 % (11.5-14.5); Red Blood Cell (RBC) Count 3.88 10x6/uL (3.90-5.03); White Blood Cell (WBC) Count 2.9 10x3/uL (3.5-10.5)
[2021-06-06 13:19] LABS: Platelet Count 86 10x3/uL (150-450)
[2021-06-06 13:24] LABS: Prothrombin Time 10.9 sec (9.5-12.1)
[2021-06-06 13:42] LABS: Anion Gap 13 mmol/L (10-20); BUN (Urea Nitrogen) 20 mg/dL (9.8-20.1); Calc. Creatinine Clearance 0 mL/min (70-130); Calcium 9.8 mg/dL (7.8-10.44); Carbon Dioxide 23 mmol/L (23-31); Chloride 107 mmol/L (98-107); Glucose 141 mg/dL (80-115); Potassium 4.7 mmol/L (3.5-5.1); Sodium 138 mmol/L (136-145)
[2021-06-06 13:47] LABS: MDiff Complete? YES; Manual Diff?? YES
[2021-06-06 13:50] LABS: Large Platelets SLIGHT; Platelet Morphology Comment Appears Decreased
[2021-06-06 13:55] LABS: Band 8 % (5-11); Eosinophils 2 % (0-10); Lymphocytes 12 % (21-51); Monocytes 10 % (0-10); Neutrophil 59 % (42-75); Reactive Lymphocytes 8 % (0-10)
[2021-06-06 20:55] LABS: SARS-CoV-2 PCR by NAA Not Detected (NotDetected)
[2021-06-11] MEDS ORDERED: Tranexamic Acid 1,000 MG/10 ML VIAL ONE (06:29)
[2021-06-11] MEDS ORDERED: Vancomycin 1 GM/200 ML BAG ONE (06:29)
[2021-06-11] MEDS ORDERED: Midazolam HCl 2 mg/2 ml Vial ONE (06:30)
[2021-06-11] MEDS ORDERED: Fentanyl 100 MCG/2 ML VIAL ONE ×4 (06:30→09:36)
[2021-06-11] MEDS ORDERED: Bupivacaine 0.25% HCL 30 ML VIAL ONE (07:17)
[2021-06-11] MEDS ORDERED: EPINEPHrine 1 MG/ML AMP ONE (07:17)
[2021-06-11] MEDS ORDERED: PROPOFOL 200 MG/20 ML VIAL ONE (07:22)
[2021-06-11] MEDS ORDERED: PHENYLEPHRINE-NS 100 MCG/ML 10 ML SYRINGE ONE (07:22)
[2021-06-11] MEDS ORDERED: Lidocaine 1% PF 5 ML VIAL ONE (07:22)
[2021-06-11] MEDS ORDERED: Ropivacaine 2% HCl/PF (20 MG/10 ML VIAL) ONE (07:22)
[2021-06-11] MEDS ORDERED: Ondansetron PF 4 MG/2 ML Vial ONE (07:22)
[2021-06-11] MEDS ORDERED: Bupivacaine HCl 0.5%/Epinephrine 1:200,000/PF 30 ml Vial ONE (07:22)
[2021-06-11] MEDS ORDERED: Promethazine HCl 25 MG/ML VIAL IM PRN ×3 (07:30→09:55)
[2021-06-11] MEDS ORDERED: Ropivacaine HCl/PF 250 ML in Premix Bag 1 BAG NERVE BLCK SCH (07:30)
[2021-06-11] MEDS ORDERED: Zolpidem Tartrate 5 MG TAB PO PRN ×2 (07:30→09:55)
[2021-06-11] MEDS ORDERED: HYDROcodone/Acetaminophen 10/325 mg Tablet PO PRN ×3 (07:30→09:55)
[2021-06-11] MEDS ORDERED: traMADol HCl 50 MG TAB PO PRN ×2 (07:30→09:55)
[2021-06-11] MEDS ORDERED: Ondansetron PF 4 MG/2 ML Vial IVP PRN ×2 (07:30→09:55)
[2021-06-11] MEDS ORDERED: Promethazine HCl 25 MG/ML VIAL IVPB PRN (08:13)
[2021-06-11] MEDS ORDERED: Ondansetron HCl/PF 4 MG/2 ML Vial IVP PRN (08:13)
[2021-06-11] MEDS ORDERED: Acetaminophen 325 MG TAB PO PRN (09:55)
[2021-06-11] MEDS ORDERED: Fentanyl 100 MCG/2 ML VIAL SLOW IVP PRN ×2 (09:55)
[2021-06-11] MEDS ORDERED: Aspirin 81 mg Enteric Coated Tablet PO SCH (10:30)
[2021-06-11 10:55] VITALS: BMI 31.6
[2021-06-11] MEDS: Fentanyl 100 MCG/2 ML VIAL SLOW IVP PRN ×3 (11:24→20:28)
[2021-06-11] MEDS ORDERED: Dextrose 5% in Water 1,000 ML IV PRN (11:48)
[2021-06-11] MEDS ORDERED: Dextrose 50% Abboject 50 ML SYRINGE SLOW IVP PRN (11:48)
[2021-06-11] MEDS: Sodium Chloride 0.9% 1,000 ML IV SCH ×2 (11:49→20:23)
[2021-06-11] MEDS ORDERED: Ketorolac Tromethamine 30 MG/ML VIAL IVP SCH (12:00)
[2021-06-11] MEDS ORDERED: hydrALAZINE 20 MG/ML VIAL SLOW IVP PRN (13:25)
[2021-06-11] MEDS: CEFAZOLIN 2 GM in Premix Bag 1 BAG IVPB SCH ×2 (14:43→23:35)
[2021-06-11] MEDS ORDERED: EVOLOCUMAB SC SCH (17:00)
[2021-06-11] MEDS ORDERED: Vancomycin 1 GM in Premix Bag 1 BAG IVPB SCH (20:00)
[2021-06-11] MEDS: Gabapentin 300 MG CAP PO SCH (20:20)
[2021-06-11] MEDS: Metoprolol Tartrate 100 MG TAB PO SCH (20:20)
[2021-06-11] MEDS: cloNIDine 0.2 MG TAB PO SCH (20:20)
[2021-06-11] MEDS: Mycophenolate 250 MG CAP PO SCH (20:20)
[2021-06-11] MEDS: Aspirin 81 mg Enteric Coated Tablet PO SCH (20:21)
[2021-06-11] MEDS: Lantus 1000 UNITS/10 ML VIAL SC SCH (20:42)
[2021-06-11] MEDS: Ursodiol 300 MG CAP PO SCH (21:08)
[2021-06-11] MEDS: HYDROcodone/Acetaminophen 10/325 mg Tablet PO PRN (21:11)
[2021-06-12] MEDS: Sodium Chloride 0.9% 1,000 ML IV SCH ×2 (04:56→19:29)
[2021-06-12] MEDS: HYDROcodone/Acetaminophen 10/325 mg Tablet PO PRN ×4 (05:04→20:01)
[2021-06-12 06:04] LABS: Hemoglobin 9.9 g/dL (12.0-16.0); Mean Corpuscular HGB CONC 32.1 g/dL (32.0-36.0); Mean Corpuscular Hemoglobin 28.9 pg (27.0-31.0); Mean Platelet Volume 9.3 fL (7.4-10.4); Platelet Count 81 thou/uL (130-400); RBC Distribution Width 13.6 % (11.5-14.5); Red Blood Cell (RBC) Count 3.45 mill/uL (4.20-5.40); White Blood Cell (WBC) Count 5.3 thou/uL (4.8-10.8)
[2021-06-12] MEDS: Aspirin 81 mg Enteric Coated Tablet PO SCH ×2 (08:28→20:02)
[2021-06-12] MEDS: Ferrous Gluconate 324 MG TAB PO SCH ×2 (08:28→19:29)
[2021-06-12] MEDS: cloNIDine 0.2 MG TAB PO SCH ×2 (08:28→20:02)
[2021-06-12] MEDS: Metoprolol Tartrate 100 MG TAB PO SCH ×2 (08:28→20:02)
[2021-06-12] MEDS: Gabapentin 300 MG CAP PO SCH ×2 (08:29→20:02)
[2021-06-12] MEDS: Senokot S 8.6-50 MG TAB PO SCH ×2 (08:29→20:02)
[2021-06-12] MEDS: Multivitamin W/ Minerals 1 TAB PO SCH (08:29)
[2021-06-12] MEDS: Ursodiol 300 MG CAP PO SCH ×2 (08:32→20:02)
[2021-06-12] MEDS: Mycophenolate 250 MG CAP PO SCH ×2 (08:59→20:12)
[2021-06-12] MEDS ORDERED: Lantus 1000 UNITS/10 ML VIAL SC SCH ×2 (09:00)
[2021-06-12] MEDS: Tacrolimus 1 MG CAP PO SCH ×2 (10:13→20:02)
[2021-06-12] MEDS: HumaLOG 300 UNITS/3 ML VIAL SC PRN (13:11)
[2021-06-12] MEDS: Lantus 1000 UNITS/10 ML VIAL SC SCH (22:33)
[2021-06-13] MEDS: Sodium Chloride 0.9% 1,000 ML IV SCH ×3 (01:19→22:10)
[2021-06-13] MEDS: HYDROcodone/Acetaminophen 10/325 mg Tablet PO PRN ×4 (04:05→20:12)
[2021-06-13 06:14] LABS: Hemoglobin 10.4 g/dL (12.0-16.0); Mean Corpuscular Hemoglobin 29.1 pg (27.0-31.0); Mean Corpuscular Volume 88.2 fL (78.0-98.0); Mean Platelet Volume 9.9 fL (7.4-10.4); Platelet Count 84 thou/uL (130-400); RBC Distribution Width 13.8 % (11.5-14.5); Red Blood Cell (RBC) Count 3.57 mill/uL (4.20-5.40); White Blood Cell (WBC) Count 6.3 thou/uL (4.8-10.8)
[2021-06-13] MEDS: diphenhydrAMINE 25 MG CAP PO PRN ×2 (06:38→17:17)
[2021-06-13] MEDS: Mycophenolate 250 MG CAP PO SCH ×2 (08:58→20:10)
[2021-06-13] MEDS: Tacrolimus 1 MG CAP PO SCH ×2 (08:59→20:12)
[2021-06-13] MEDS: Gabapentin 300 MG CAP PO SCH ×2 (08:59→20:12)
[2021-06-13] MEDS: Metoprolol Tartrate 100 MG TAB PO SCH ×2 (08:59→20:12)
[2021-06-13] MEDS: Ferrous Gluconate 324 MG TAB PO SCH ×2 (08:59→17:17)
[2021-06-13] MEDS: Ursodiol 300 MG CAP PO SCH ×2 (08:59→20:11)
[2021-06-13] MEDS: Senokot S 8.6-50 MG TAB PO SCH ×2 (09:00→20:11)
[2021-06-13] MEDS: Multivitamin W/ Minerals 1 TAB PO SCH (09:00)
[2021-06-13] MEDS: cloNIDine 0.2 MG TAB PO SCH ×2 (09:00→20:11)
[2021-06-13] MEDS: Aspirin 81 mg Enteric Coated Tablet PO SCH ×2 (09:01→20:12)
[2021-06-13] MEDS: Lantus 1000 UNITS/10 ML VIAL SC SCH ×2 (09:02→20:15)
[2021-06-13] MEDS: HumaLOG 300 UNITS/3 ML VIAL SC PRN (15:17)
[2021-06-13] MEDS: traMADol HCl 50 MG TAB PO PRN (22:12)
[2021-06-13] MEDS: Fentanyl 100 MCG/2 ML VIAL SLOW IVP PRN (23:09)
[2021-06-14] MEDS: diphenhydrAMINE 25 MG CAP PO PRN ×2 (04:28→23:36)
[2021-06-14] MEDS: HYDROcodone/Acetaminophen 10/325 mg Tablet PO PRN ×3 (06:51→20:33)
[2021-06-14] MEDS: Ferrous Gluconate 324 MG TAB PO SCH ×2 (09:12→18:53)
[2021-06-14] MEDS: Mycophenolate 250 MG CAP PO SCH ×2 (09:12→20:37)
[2021-06-14] MEDS: Aspirin 81 mg Enteric Coated Tablet PO SCH ×2 (09:12→20:36)
[2021-06-14] MEDS: Multivitamin W/ Minerals 1 TAB PO SCH (09:12)
[2021-06-14] MEDS: cloNIDine 0.2 MG TAB PO SCH ×2 (09:12→21:11)
[2021-06-14] MEDS: Senokot S 8.6-50 MG TAB PO SCH ×2 (09:13→21:07)
[2021-06-14] MEDS: Gabapentin 300 MG CAP PO SCH ×2 (09:13→20:37)
[2021-06-14] MEDS: Metoprolol Tartrate 100 MG TAB PO SCH ×2 (09:13→20:37)
[2021-06-14] MEDS: Ursodiol 300 MG CAP PO SCH ×2 (09:14→20:36)
[2021-06-14] MEDS: Tacrolimus 1 MG CAP PO SCH ×2 (09:14→20:36)
[2021-06-14] MEDS: Lantus 1000 UNITS/10 ML VIAL SC SCH ×2 (09:15→20:46)
[2021-06-14] MEDS: Sodium Chloride 0.9% 1,000 ML IV SCH ×2 (09:16→18:33)
[2021-06-15] MEDS: diphenhydrAMINE 25 MG CAP PO PRN ×3 (05:01→17:57)
[2021-06-15] MEDS: HYDROcodone/Acetaminophen 10/325 mg Tablet PO PRN ×3 (05:01→17:57)
[2021-06-15] MEDS: Sodium Chloride 0.9% 1,000 ML IV SCH ×2 (05:59→14:34)
[2021-06-15] MEDS: cloNIDine 0.2 MG TAB PO SCH ×2 (08:36→21:57)
[2021-06-15] MEDS: Ursodiol 300 MG CAP PO SCH ×2 (08:36→21:55)
[2021-06-15] MEDS: Mycophenolate 250 MG CAP PO SCH ×2 (08:36→21:52)
[2021-06-15] MEDS: Metoprolol Tartrate 100 MG TAB PO SCH ×2 (08:36→21:56)
[2021-06-15] MEDS: Aspirin 81 mg Enteric Coated Tablet PO SCH ×2 (08:37→21:57)
[2021-06-15] MEDS: Tacrolimus 1 MG CAP PO SCH ×2 (08:37→21:54)
[2021-06-15] MEDS: Senokot S 8.6-50 MG TAB PO SCH ×2 (08:37→21:58)
[2021-06-15] MEDS: Multivitamin W/ Minerals 1 TAB PO SCH (08:37)
[2021-06-15] MEDS: Gabapentin 300 MG CAP PO SCH ×2 (08:38→21:55)
[2021-06-15] MEDS: Ferrous Gluconate 324 MG TAB PO SCH ×2 (08:38→16:40)
[2021-06-15] MEDS: Lantus 1000 UNITS/10 ML VIAL SC SCH ×2 (08:40→22:16)
[2021-06-15] MEDS: traMADol HCl 50 MG TAB PO PRN ×2 (12:14→22:02)
[2021-06-16] MEDS: diphenhydrAMINE 25 MG CAP PO PRN ×2 (00:42→17:01)
[2021-06-16] MEDS: HYDROcodone/Acetaminophen 10/325 mg Tablet PO PRN ×2 (00:42→17:01)
[2021-06-16] MEDS: Sodium Chloride 0.9% 1,000 ML IV SCH ×3 (02:05→19:37)
[2021-06-16] MEDS: traMADol HCl 50 MG TAB PO PRN ×3 (06:45→22:20)
[2021-06-16] MEDS: Ferrous Gluconate 324 MG TAB PO SCH ×2 (08:17→16:59)
[2021-06-16] MEDS: Multivitamin W/ Minerals 1 TAB PO SCH (08:17)
[2021-06-16] MEDS: Mycophenolate 250 MG CAP PO SCH ×2 (08:17→20:52)
[2021-06-16] MEDS: Tacrolimus 1 MG CAP PO SCH ×2 (08:18→21:31)
[2021-06-16] MEDS: Metoprolol Tartrate 100 MG TAB PO SCH ×2 (08:18→20:52)
[2021-06-16] MEDS: Ursodiol 300 MG CAP PO SCH ×2 (08:18→20:48)
[2021-06-16] MEDS: Gabapentin 300 MG CAP PO SCH ×2 (08:18→20:51)
[2021-06-16] MEDS: Aspirin 81 mg Enteric Coated Tablet PO SCH ×2 (08:18→20:53)
[2021-06-16] MEDS: Senokot S 8.6-50 MG TAB PO SCH ×2 (08:18→20:53)
[2021-06-16] MEDS: cloNIDine 0.2 MG TAB PO SCH ×2 (08:18→20:53)
[2021-06-16] MEDS: Lantus 1000 UNITS/10 ML VIAL SC SCH ×2 (08:19→20:55)
[2021-06-16] MEDS: Polyethylene Glycol 3350 17 GM Packet PO SCH (10:35)
[2021-06-16] MEDS: Cyclobenzaprine 10 MG TAB PO PRN (10:35)
[2021-06-17] MEDS: diphenhydrAMINE 25 MG CAP PO PRN ×4 (02:57→21:30)
[2021-06-17] MEDS: HYDROcodone/Acetaminophen 10/325 mg Tablet PO PRN ×4 (02:57→21:31)
[2021-06-17] MEDS: Mycophenolate 250 MG CAP PO SCH ×2 (08:59→22:13)
[2021-06-17] MEDS: Tacrolimus 1 MG CAP PO SCH ×2 (09:00→21:31)
[2021-06-17] MEDS: cloNIDine 0.2 MG TAB PO SCH ×2 (09:00→21:29)
[2021-06-17] MEDS: Ursodiol 300 MG CAP PO SCH ×2 (09:00→21:29)
[2021-06-17] MEDS: Aspirin 81 mg Enteric Coated Tablet PO SCH ×2 (09:01→21:29)
[2021-06-17] MEDS: Ferrous Gluconate 324 MG TAB PO SCH ×2 (09:01→17:40)
[2021-06-17] MEDS: Gabapentin 300 MG CAP PO SCH ×2 (09:01→21:31)
[2021-06-17] MEDS: Multivitamin W/ Minerals 1 TAB PO SCH (09:01)
[2021-06-17] MEDS: Metoprolol Tartrate 100 MG TAB PO SCH ×2 (09:03→21:29)
[2021-06-17] MEDS: Polyethylene Glycol 3350 17 GM Packet PO SCH (09:04)
[2021-06-17] MEDS: Senokot S 8.6-50 MG TAB PO SCH ×2 (09:04→21:29)
[2021-06-17] MEDS: Lantus 1000 UNITS/10 ML VIAL SC SCH ×2 (09:05→22:16)
[2021-06-17] MEDS: Sodium Chloride 0.9% 1,000 ML IV SCH ×2 (09:15→17:40)
[2021-06-17] MEDS: traMADol HCl 50 MG TAB PO PRN (18:22)
[2021-06-17] MEDS: Cyclobenzaprine 10 MG TAB PO PRN (19:43)
[2021-06-18] MEDS: Sodium Chloride 0.9% 1,000 ML IV SCH ×2 (04:22→11:01)
[2021-06-18] MEDS: HYDROcodone/Acetaminophen 10/325 mg Tablet PO PRN ×2 (06:21→14:42)
[2021-06-18] MEDS: diphenhydrAMINE 25 MG CAP PO PRN ×2 (06:21→14:42)
[2021-06-18] MEDS ORDERED: TRULICITY SC SCH (09:00)
[2021-06-18] MEDS ORDERED: INJECTOR SC SCH (09:00)
[2021-06-18] MEDS: Lantus 1000 UNITS/10 ML VIAL SC SCH (09:32)
[2021-06-18] MEDS: traMADol HCl 50 MG TAB PO PRN ×2 (09:32→17:49)
[2021-06-18] MEDS: Metoprolol Tartrate 100 MG TAB PO SCH (09:33)
[2021-06-18] MEDS: Aspirin 81 mg Enteric Coated Tablet PO SCH (09:33)
[2021-06-18] MEDS: Senokot S 8.6-50 MG TAB PO SCH (09:33)
[2021-06-18] MEDS: cloNIDine 0.2 MG TAB PO SCH (09:33)
[2021-06-18] MEDS: Multivitamin W/ Minerals 1 TAB PO SCH (09:33)
[2021-06-18] MEDS: Tacrolimus 1 MG CAP PO SCH (09:34)
[2021-06-18] MEDS: Ursodiol 300 MG CAP PO SCH (09:34)
[2021-06-18] MEDS: Ferrous Gluconate 324 MG TAB PO SCH ×2 (09:34→17:49)
[2021-06-18] MEDS: Gabapentin 300 MG CAP PO SCH (09:34)
[2021-06-18] MEDS: Mycophenolate 250 MG CAP PO SCH (09:34)
[2021-06-18] MEDS: Polyethylene Glycol 3350 17 GM Packet PO SCH (09:38)
[2021-06-18] MEDS: HumaLOG 300 UNITS/3 ML VIAL SC PRN (11:20)
[2021-06-18 16:21] VITALS: BP 146/76; TEMP 98.3
== END 2021-06-18 19:03 | disposition swing bed (61) | DRG 470 ==
LOC: SDC 05:39 → SJJU 09:55 → EDSTATUS 11:00
PROVIDERS: ADMIT Orthopaedic Surgery; ATTEND Orthopaedic Surgery
PROC: 0SRD0J9 Replacement of Left Knee Joint with Synthetic Substitute, Cemented, Open Approach (ICD-10-PCS; principal; 2021-06-11)
DX: M17.12 Unilateral primary osteoarthritis, left knee (principal); Z94.4 Liver transplant status; I13.0 Hypertensive heart and chronic kidney disease with heart failure and stage 1 through stage 4 chronic kidney disease, or unspecified chronic kidney disease; Z20.822 Contact with and (suspected) exposure to COVID-19; I25.10 Atherosclerotic heart disease of native coronary artery without angina pectoris; E78.5 Hyperlipidemia, unspecified; E78.00 Pure hypercholesterolemia, unspecified; D69.6 Thrombocytopenia, unspecified; I50.9 Heart failure, unspecified; N18.9 Chronic kidney disease, unspecified; E11.22 Type 2 diabetes mellitus with diabetic chronic kidney disease; F41.1 Generalized anxiety disorder; J44.9 Chronic obstructive pulmonary disease, unspecified; K21.9 Gastro-esophageal reflux disease without esophagitis; D50.9 Iron deficiency anemia, unspecified; E11.40 Type 2 diabetes mellitus with diabetic neuropathy, unspecified; M62.838 Other muscle spasm; K59.03 Drug induced constipation; T40.2X5A Adverse effect of other opioids, initial encounter; Z79.82 Long term (current) use of aspirin; Z91.09 Other allergy status, other than to drugs and biological substances; Z79.899 Other long term (current) drug therapy; Z79.4 Long term (current) use of insulin; Z85.05 Personal history of malignant neoplasm of liver; Z80.3 Family history of malignant neoplasm of breast; Z80.0 Family history of malignant neoplasm of digestive organs; Z80.8 Family history of malignant neoplasm of other organs or systems; Z87.891 Personal history of nicotine dependence; Z90.49 Acquired absence of other specified parts of digestive tract; Z95.5 Presence of coronary angioplasty implant and graft; Z90.710 Acquired absence of both cervix and uterus
CPT/HCPCS: 36415; 36416; 80048; 85025; 85027; 85610; 86850; 86900; 86901; C1713; C1776; J0171; J0360; J0690; J1815; J2250; J2405; J2704; J2795; J3010; J3370; J7507; J7517; S0020; U0003; U0005

== ENCOUNTER 2022-11-14 10:34 | Outpatient (CLI) | payer OTHER | END 2022-11-14 10:35 | disposition home or self-care (01) | LOC: NM 10:34 | PROVIDERS: ATTEND Specialist | DX: T84.84XA Pain due to internal orthopedic prosthetic devices, implants and grafts, initial encounter (principal); Z96.652 Presence of left artificial knee joint | CPT/HCPCS: 78315; A9503 ==

== ENCOUNTER 2023-05-27 15:24 | Inpatient (IN) | payer OTHER, MEDICAID ==
[2023-05-27] MEDS ORDERED: HumaLOG 300 UNITS/3 ML VIAL SC PRN ×2 (22:48)
[2023-05-27] MEDS ORDERED: Dextrose 5% in Water 1,000 ML IV PRN (22:48)
[2023-05-27] MEDS ORDERED: Glucagon 1 MG/ML KIT IM PRN (22:48)
[2023-05-27] MEDS ORDERED: Dextrose 50% Abboject 50 ML SYRINGE SLOW IVP PRN (22:48)
[2023-05-28] MEDS ORDERED: Losartan 25 MG TAB PO SCH (04:15)
[2023-05-28 04:28] LABS: Hematocrit 29.1 % (36.0-47.0); Hemoglobin 9.1 g/dL (12.0-16.0); Manual Diff?? YES; Mean Corpuscular HGB CONC 31.3 g/dL (32.0-36.0); Mean Corpuscular Hemoglobin 26.8 pg (27.0-31.0); Mean Corpuscular Volume 85.8 fl (78.0-98.0); Mean Platelet Volume 12.3 fL (7.4-10.4); RBC Distribution Width 15.5 % (11.5-14.5); Red Blood Cell (RBC) Count 3.39 mill/uL (4.20-5.40); White Blood Cell (WBC) Count 1.5 10x3/uL (4.8-10.8)
[2023-05-28 04:30] LABS: Delete Auto Diff?? YES; Platelet Count 81 10x3/uL (130-400)
[2023-05-28 05:03] LABS: Anisocytosis SLIGHT = 6-15 cells HPF (0-5); Band 14 % (5-11); CellaVision Operator ID LAB.CLH1; Elliptocytes SLIGHT = 2-5 cells HPF (0-1); Hypochromia SLIGHT = 6-15 cells HPF (0-5); Large Platelets 18.8 % (0-5); Lymphocytes 36 % (21-51); Macrocytosis SLIGHT = 6-15 cells HPF (0-5); Monocytes 6 % (0-10); Neutrophil 39 % (42-75); Platelet Adequacy Comment Platelets Decreased; Polychromasia SLIGHT = 2-3 cells HPF (0-2); Reactive Lymphocytes 5 % (0-10); Total Cell Count 64
[2023-05-28 05:22] LABS: Anion Gap 16 mmol/L (10-20); BUN (Urea Nitrogen) 18 mg/dL (9.8-20.1); Calc. Creatinine Clearance 50 mL/min (70-130); Carbon Dioxide 19 mmol/L (23-31); Chloride 110 mmol/L (98-107); Potassium 3.4 mmol/L (3.5-5.1); Sodium 142 mmol/L (136-145)
[2023-05-28 05:23] LABS: Calcium 9.5 mg/dL (7.8-10.44); Estimated GFR 51; Glucose 150 mg/dL (80-115)
[2023-05-28] MEDS: cloNIDine 0.2 MG TAB PO SCH ×2 (08:49→21:09)
[2023-05-28] MEDS: Gabapentin 300 MG CAP PO SCH ×3 (08:50→21:09)
[2023-05-28] MEDS: Tacrolimus 1 MG CAP PO SCH ×2 (08:51→21:08)
[2023-05-28] MEDS: Clopidogrel Bisulfate 75 MG TAB PO SCH (08:51)
[2023-05-28] MEDS: Aspirin 81 mg Enteric Coated Tablet PO SCH (08:51)
[2023-05-28] MEDS: Ezetimibe 10 MG TAB PO SCH ×2 (08:52→21:09)
[2023-05-28] MEDS: Mycophenolate 250 MG CAP PO SCH ×2 (09:28→21:08)
[2023-05-28] MEDS: Ursodiol 300 MG CAP PO SCH ×2 (09:55→21:08)
[2023-05-28] MEDS: Atorvastatin Calcium 40 MG TAB PO SCH (21:08)
[2023-05-28] MEDS: Losartan 25 MG TAB PO SCH (21:09)
[2023-05-29 04:27] LABS: #Monocytes 0.3 thou/uL (0.11-0.59); #Neutrophils 0.2 thou/uL (1.40-6.50); %Basophils 0.5 % (0.0-1.0); %Eosinophils 2.2 % (0.0-10.0); %Lymphocytes 66.8 % (21.0-51.0); %Monocytes 18.5 % (0.0-10.0); Hematocrit 26.2 % (36.0-47.0); Manual Diff?? YES; Mean Corpuscular HGB CONC 30.5 g/dL (32.0-36.0); Mean Corpuscular Hemoglobin 26.8 pg (27.0-31.0); Mean Corpuscular Volume 87.9 fl (78.0-98.0); Mean Platelet Volume 11.9 fL (7.4-10.4); RBC Distribution Width 15.8 % (11.5-14.5); Red Blood Cell (RBC) Count 2.98 mill/uL (4.20-5.40); White Blood Cell (WBC) Count 1.8 10x3/uL (4.8-10.8)
[2023-05-29 04:39] LABS: Platelet Count 82 10x3/uL (130-400)
[2023-05-29 04:53] LABS: Anion Gap 11 mmol/L (10-20); BUN (Urea Nitrogen) 19 mg/dL (9.8-20.1); Calc. Creatinine Clearance 51 mL/min (70-130); Calcium 8.8 mg/dL (7.8-10.44); Carbon Dioxide 24 mmol/L (23-31); Chloride 108 mmol/L (98-107); Estimated GFR 51; Glucose 110 mg/dL (80-115); Potassium 3.6 mmol/L (3.5-5.1); Sodium 139 mmol/L (136-145)
[2023-05-29 05:39] LABS: Anisocytosis SLIGHT = 6-15 cells HPF (0-5); Band 2 % (5-11); CellaVision Operator ID LAB.JMM; Elliptocytes SLIGHT = 2-5 cells HPF (0-1); Eosinophils 3 % (0-10); Lymphocytes 73 % (21-51); Macrocytosis SLIGHT = 6-15 cells HPF (0-5); Monocytes 7 % (0-10); Neutrophil 11 % (42-75); Platelet Adequacy Comment Platelets Decreased; Polychromasia SLIGHT = 2-3 cells HPF (0-2); Reactive Lymphocytes 4 % (0-10); Total Cell Count 100
[2023-05-29] MEDS: Gabapentin 300 MG CAP PO SCH ×3 (09:47→20:35)
[2023-05-29] MEDS: Mycophenolate 250 MG CAP PO SCH ×2 (09:48→20:35)
[2023-05-29] MEDS: Aspirin 81 mg Enteric Coated Tablet PO SCH (09:49)
[2023-05-29] MEDS: Ursodiol 300 MG CAP PO SCH ×2 (09:50→20:35)
[2023-05-29] MEDS: Tacrolimus 1 MG CAP PO SCH ×2 (09:51→20:35)
[2023-05-29] MEDS: Clopidogrel Bisulfate 75 MG TAB PO SCH (09:51)
[2023-05-29] MEDS: cloNIDine 0.2 MG TAB PO SCH ×2 (09:51→20:35)
[2023-05-29] MEDS: Ezetimibe 10 MG TAB PO SCH ×2 (09:52→20:35)
[2023-05-29] MEDS: Atorvastatin Calcium 40 MG TAB PO SCH (20:35)
[2023-05-29] MEDS: Losartan 25 MG TAB PO SCH (20:36)
[2023-05-29] MEDS: CeleCOXIB 100 MG CAP PO PRN (22:09)
[2023-05-30 06:14] LABS: Hematocrit 28.9 % (36.0-47.0); Hemoglobin 8.8 g/dL (12.0-16.0); Manual Diff?? YES; Mean Corpuscular HGB CONC 30.4 g/dL (32.0-36.0); Mean Corpuscular Hemoglobin 27.1 pg (27.0-31.0); Mean Corpuscular Volume 88.9 fl (78.0-98.0); Mean Platelet Volume 11.3 fL (7.4-10.4); RBC Distribution Width 15.5 % (11.5-14.5); Red Blood Cell (RBC) Count 3.25 mill/uL (4.20-5.40); White Blood Cell (WBC) Count 2.3 10x3/uL (4.8-10.8)
[2023-05-30 06:26] LABS: Delete Auto Diff?? YES; Platelet Count 84 10x3/uL (130-400)
[2023-05-30 06:45] LABS: Anion Gap 12 mmol/L (10-20); BUN (Urea Nitrogen) 22 mg/dL (9.8-20.1); Calc. Creatinine Clearance 49 mL/min (70-130); Calcium 8.7 mg/dL (7.8-10.44); Carbon Dioxide 21 mmol/L (23-31); Chloride 108 mmol/L (98-107); Estimated GFR 49; Glucose 128 mg/dL (80-115); Sodium 137 mmol/L (136-145)
[2023-05-30 07:09] LABS: CellaVision Operator ID lab.abc; Elliptocytes SLIGHT = 2-5 cells HPF (0-1); Eosinophils 6 % (0-10); Large Platelets 10.8 % (0-5); Lymphocytes 77 % (21-51); Monocytes 12 % (0-10); Neutrophil 5 % (42-75); Platelet Adequacy Comment Platelets Decreased; Poikilocytosis SLIGHT = 6-15 cells HPF (0-5); Polychromasia SLIGHT = 2-3 cells HPF (0-2); Reactive Lymphocytes 1 % (0-10); Smudge Cells 10.8 %; Tear Drops SLIGHT = 2-5 cells HPF (0-1); Total Cell Count 102
[2023-05-30] MEDS: Ursodiol 300 MG CAP PO SCH ×2 (09:34→20:25)
[2023-05-30] MEDS: Tacrolimus 1 MG CAP PO SCH ×2 (09:34→20:25)
[2023-05-30] MEDS: Mycophenolate 250 MG CAP PO SCH ×2 (09:35→20:50)
[2023-05-30] MEDS: cloNIDine 0.2 MG TAB PO SCH ×2 (09:35→20:24)
[2023-05-30] MEDS: Gabapentin 300 MG CAP PO SCH ×3 (09:35→20:24)
[2023-05-30] MEDS: Ezetimibe 10 MG TAB PO SCH ×2 (09:35→20:24)
[2023-05-30] MEDS: Clopidogrel Bisulfate 75 MG TAB PO SCH (09:36)
[2023-05-30] MEDS: Aspirin 81 mg Enteric Coated Tablet PO SCH (09:36)
[2023-05-30] MEDS: Atorvastatin Calcium 40 MG TAB PO SCH (20:24)
[2023-05-30] MEDS: Losartan 25 MG TAB PO SCH (20:25)
[2023-05-30] MEDS: CeleCOXIB 100 MG CAP PO PRN (20:50)
[2023-05-30] MEDS: Acetaminophen 500 MG TAB PO PRN (20:50)
[2023-05-31 06:04] LABS: Hematocrit 25.9 % (36.0-47.0); Hemoglobin 8.2 g/dL (12.0-16.0); Manual Diff?? YES; Mean Corpuscular HGB CONC 31.7 g/dL (32.0-36.0); Mean Corpuscular Hemoglobin 27.2 pg (27.0-31.0); Mean Platelet Volume 12.6 fL (7.4-10.4); RBC Distribution Width 15.1 % (11.5-14.5); Red Blood Cell (RBC) Count 3.02 mill/uL (4.20-5.40); White Blood Cell (WBC) Count 2.9 10x3/uL (4.8-10.8)
[2023-05-31 06:30] LABS: Anion Gap 10 mmol/L (10-20); BUN (Urea Nitrogen) 22 mg/dL (9.8-20.1); Calc. Creatinine Clearance 52 mL/min (70-130); Calcium 8.5 mg/dL (7.8-10.44); Carbon Dioxide 24 mmol/L (23-31); Chloride 109 mmol/L (98-107); Estimated GFR 52; Glucose 146 mg/dL (80-115); Sodium 139 mmol/L (136-145)
[2023-05-31 06:34] LABS: Delete Auto Diff?? YES; Mean Corpuscular Volume 85.8 fl (78.0-98.0); Platelet Count 73 10x3/uL (130-400)
[2023-05-31 07:08] LABS: Band 2 % (5-11); CellaVision Operator ID LAB.CLH1; Elliptocytes SLIGHT = 2-5 cells HPF (0-1); Eosinophils 5 % (0-10); Large Platelets 16.2 % (0-5); Lymphocytes 85 % (21-51); Metamyelocyte 4 % (0-0); Monocytes 4 % (0-10); Neutrophil 1 % (42-75); Platelet Adequacy Comment Platelets Decreased; Poikilocytosis SLIGHT = 6-15 cells HPF (0-5); Polychromasia SLIGHT = 2-3 cells HPF (0-2); Total Cell Count 105
[2023-05-31] MEDS: Mycophenolate 250 MG CAP PO SCH ×2 (09:07→20:29)
[2023-05-31] MEDS: Ursodiol 300 MG CAP PO SCH ×2 (09:08→20:31)
[2023-05-31] MEDS: Clopidogrel Bisulfate 75 MG TAB PO SCH (09:08)
[2023-05-31] MEDS: cloNIDine 0.2 MG TAB PO SCH ×2 (09:08→20:31)
[2023-05-31] MEDS: Gabapentin 300 MG CAP PO SCH ×3 (09:08→20:31)
[2023-05-31] MEDS: Ezetimibe 10 MG TAB PO SCH ×2 (09:08→20:31)
[2023-05-31] MEDS: Tacrolimus 1 MG CAP PO SCH ×2 (09:09→20:31)
[2023-05-31] MEDS: Aspirin 81 mg Enteric Coated Tablet PO SCH (09:09)
[2023-05-31] MEDS: Acetaminophen 500 MG TAB PO PRN (20:30)
[2023-05-31] MEDS: Atorvastatin Calcium 40 MG TAB PO SCH (20:31)
[2023-05-31] MEDS: Losartan 25 MG TAB PO SCH (20:31)
[2023-06-01] MEDS: Mycophenolate 250 MG CAP PO SCH ×2 (08:37→22:21)
[2023-06-01] MEDS: Ursodiol 300 MG CAP PO SCH ×2 (08:38→22:23)
[2023-06-01] MEDS: Ezetimibe 10 MG TAB PO SCH ×2 (08:38→22:23)
[2023-06-01] MEDS: Clopidogrel Bisulfate 75 MG TAB PO SCH (08:38)
[2023-06-01] MEDS: Tacrolimus 1 MG CAP PO SCH ×2 (08:38→22:28)
[2023-06-01] MEDS: cloNIDine 0.2 MG TAB PO SCH ×2 (08:38→20:38)
[2023-06-01] MEDS: Gabapentin 300 MG CAP PO SCH ×3 (08:38→22:22)
[2023-06-01] MEDS: Aspirin 81 mg Enteric Coated Tablet PO SCH (08:38)
[2023-06-01] MEDS: Atorvastatin Calcium 40 MG TAB PO SCH (22:21)
[2023-06-01] MEDS: Losartan 25 MG TAB PO SCH (22:24)
[2023-06-02] MEDS: Clopidogrel Bisulfate 75 MG TAB PO SCH (08:30)
[2023-06-02] MEDS: cloNIDine 0.2 MG TAB PO SCH ×2 (08:30→22:31)
[2023-06-02] MEDS: Aspirin 81 mg Enteric Coated Tablet PO SCH (08:30)
[2023-06-02] MEDS: Ezetimibe 10 MG TAB PO SCH ×2 (08:30→22:31)
[2023-06-02] MEDS: Mycophenolate 250 MG CAP PO SCH (08:30)
[2023-06-02] MEDS: Gabapentin 300 MG CAP PO SCH ×3 (08:31→22:29)
[2023-06-02] MEDS: Ursodiol 300 MG CAP PO SCH ×2 (08:31→22:32)
[2023-06-02] MEDS: Tacrolimus 1 MG CAP PO SCH ×2 (08:39→22:32)
[2023-06-02 09:19] LABS: Tacrolimus <0.5 ng/mL (2.0-20.0)
[2023-06-02] MEDS: Polyethylene Glycol 3350 17 GM Packet PO PRN (15:38)
[2023-06-02] MEDS ORDERED: Ondansetron ORAL SOLN. 4 MG/5 ML UDCUP PO PRN (17:45)
[2023-06-02] MEDS: Acetaminophen 500 MG TAB PO SCH (18:14)
[2023-06-02] MEDS ORDERED: TBO-Filgrastim 300 MCG/0.5 ML VIAL SC SCH (18:30)
[2023-06-02] MEDS: DULAGLUTIDE 3 MG/0.5 ML SC SCH (22:28)
[2023-06-02] MEDS: Losartan 25 MG TAB PO SCH (22:31)
[2023-06-02] MEDS: Atorvastatin Calcium 40 MG TAB PO SCH (22:32)
[2023-06-03] MEDS: Acetaminophen 500 MG TAB PO SCH ×5 (02:08→18:34)
[2023-06-03 06:41] LABS: Hematocrit 25.9 % (36.0-47.0); Hemoglobin 8.1 g/dL (12.0-16.0); Manual Diff?? YES; Mean Corpuscular HGB CONC 31.3 g/dL (32.0-36.0); Mean Corpuscular Volume 86.3 fl (78.0-98.0); Mean Platelet Volume 12.8 fL (7.4-10.4); RBC Distribution Width 15.2 % (11.5-14.5); White Blood Cell (WBC) Count 1.7 10x3/uL (4.8-10.8)
[2023-06-03 06:44] LABS: Delete Auto Diff?? YES; Platelet Count 81 10x3/uL (130-400)
[2023-06-03 07:05] LABS: ALT (SGPT) 12 U/L (8-55); AST (SGOT) 18 U/L (5-34); Albumin 3.4 g/dL (3.4-4.8); Alkaline Phosphatase 70 U/L (40-110); Anion Gap 12 mmol/L (10-20); BUN (Urea Nitrogen) 22 mg/dL (9.8-20.1); Calc. Creatinine Clearance 49 mL/min (70-130); Calcium 8.5 mg/dL (7.8-10.44); Carbon Dioxide 23 mmol/L (23-31); Chloride 105 mmol/L (98-107); Estimated GFR 49; Globulin 2.7 g/dL (2.4-3.5); Glucose 109 mg/dL (80-115); Potassium 4.6 mmol/L (3.5-5.1); Protein, Total 6.1 g/dL (5.8-8.1); Sodium 135 mmol/L (136-145)
[2023-06-03 08:57] LABS: Band 6 % (5-11); CellaVision Operator ID LAB.GE; Elliptocytes SLIGHT = 2-5 cells HPF (0-1); Eosinophils 3 % (0-10); Giant Platelets 2.9 % (0-5); Hypochromia SLIGHT = 6-15 cells HPF (0-5); Large Platelets 8.6 % (0-5); Lymphocytes 71 % (21-51); Metamyelocyte 1 % (0-0); Monocytes 13 % (0-10); Nucleated RBC (Manual Ct) 1 % (0); Ovalocytes SLIGHT = 2-5 cells HPF (0-1); Platelet Adequacy Comment Platelets Decreased; Polychromasia SLIGHT = 2-3 cells HPF (0-2); Reactive Lymphocytes 2 % (0-10)
[2023-06-03] MEDS ORDERED: EVOLOCUMAB 140 MG/ML FS SCH (09:00)
[2023-06-03] MEDS: Tacrolimus 1 MG CAP PO SCH ×2 (09:31→20:38)
[2023-06-03] MEDS: Aspirin 81 mg Enteric Coated Tablet PO SCH (09:31)
[2023-06-03] MEDS: cloNIDine 0.2 MG TAB PO SCH ×2 (09:31→20:40)
[2023-06-03] MEDS: Ezetimibe 10 MG TAB PO SCH ×2 (09:32→20:40)
[2023-06-03] MEDS: Clopidogrel Bisulfate 75 MG TAB PO SCH (09:32)
[2023-06-03] MEDS: Gabapentin 300 MG CAP PO SCH ×3 (09:32→20:39)
[2023-06-03] MEDS: Loratadine 10 MG TAB PO SCH (09:32)
[2023-06-03] MEDS: Ursodiol 300 MG CAP PO SCH ×2 (10:28→20:40)
[2023-06-03] MEDS: TBO-Filgrastim 300 MCG/0.5 ML VIAL SC SCH (10:28)
[2023-06-03] MEDS: Ondansetron ODT 4 MG TAB PO PRN (12:34)
[2023-06-03] MEDS: Polyethylene Glycol 3350 17 GM Packet PO PRN (15:57)
[2023-06-03 19:09] LABS: Troponin I Less than 0.010 ng/mL (< 0.028)
[2023-06-03] MEDS: Losartan 25 MG TAB PO SCH (20:38)
[2023-06-03] MEDS: Atorvastatin Calcium 40 MG TAB PO SCH (20:40)
[2023-06-04] MEDS: Acetaminophen 500 MG TAB PO SCH ×4 (00:02→17:24)
[2023-06-04] MEDS: LIDOCAINE Patch Removal TOP SCH (03:30)
[2023-06-04] MEDS ORDERED: traMADol HCl 50 MG TAB PO SCH (04:00)
[2023-06-04 07:12] LABS: Hemoglobin 8.9 g/dL (12.0-16.0); Mean Corpuscular HGB CONC 30.7 g/dL (32.0-36.0); Mean Corpuscular Hemoglobin 27.1 pg (27.0-31.0); Mean Corpuscular Volume 88.1 fl (78.0-98.0); Mean Platelet Volume 12.8 fL (7.4-10.4); RBC Distribution Width 15.8 % (11.5-14.5); Red Blood Cell (RBC) Count 3.29 mill/uL (4.20-5.40); White Blood Cell (WBC) Count 3.8 10x3/uL (4.8-10.8)
[2023-06-04 07:23] LABS: Manual Diff?? YES; Platelet Count 88 10x3/uL (130-400)
[2023-06-04 07:24] LABS: Delete Auto Diff?? YES
[2023-06-04 07:44] LABS: ALT (SGPT) 14 U/L (8-55); AST (SGOT) 26 U/L (5-34); Albumin 3.7 g/dL (3.4-4.8); Alkaline Phosphatase 81 U/L (40-110); Anion Gap 17 mmol/L (10-20); BUN (Urea Nitrogen) 21 mg/dL (9.8-20.1); Bilirubin, Total 2.6 mg/dL (0.2-1.2); Calc. Creatinine Clearance 50 mL/min (70-130); Calcium 9.1 mg/dL (7.8-10.44); Carbon Dioxide 19 mmol/L (23-31); Chloride 106 mmol/L (98-107); Estimated GFR 51; Glucose 109 mg/dL (80-115); Potassium 4.5 mmol/L (3.5-5.1); Protein, Total 6.7 g/dL (5.8-8.1); Sodium 137 mmol/L (136-145)
[2023-06-04] MEDS: Ursodiol 300 MG CAP PO SCH ×2 (08:17→21:00)
[2023-06-04] MEDS: Clopidogrel Bisulfate 75 MG TAB PO SCH (08:17)
[2023-06-04] MEDS: Tacrolimus 1 MG CAP PO SCH ×2 (08:17→21:02)
[2023-06-04] MEDS: Aspirin 81 mg Enteric Coated Tablet PO SCH (08:18)
[2023-06-04] MEDS: Ezetimibe 10 MG TAB PO SCH ×2 (08:18→21:01)
[2023-06-04] MEDS: Loratadine 10 MG TAB PO SCH (08:18)
[2023-06-04] MEDS: cloNIDine 0.2 MG TAB PO SCH ×2 (08:18→21:01)
[2023-06-04] MEDS: Gabapentin 300 MG CAP PO SCH ×3 (08:18→21:02)
[2023-06-04] MEDS: TBO-Filgrastim 300 MCG/0.5 ML VIAL SC SCH (08:19)
[2023-06-04 08:33] LABS: Band 32 % (5-11); CellaVision Operator ID LAB.GE; Dohle Bodies SLIGHT; Eosinophils 2 % (0-10); Lymphocytes 37 % (21-51); Metamyelocyte 2 % (0-0); Monocytes 9 % (0-10); Myelocyte 1 % (0-0); Neutrophil 15 % (42-75); Ovalocytes SLIGHT = 2-5 cells HPF (0-1); Platelet Adequacy Comment Platelets Decreased; Polychromasia SLIGHT = 2-3 cells HPF (0-2); Promyelocytes 1 % (0-0); Total Cell Count 101; Vacuoles SLIGHT
[2023-06-04] MEDS: Ondansetron ODT 4 MG TAB PO PRN (12:02)
[2023-06-04] MEDS: Lidocaine 4% Patch TD SCH (14:39)
[2023-06-04] MEDS: Losartan 25 MG TAB PO SCH (21:01)
[2023-06-04] MEDS: Atorvastatin Calcium 40 MG TAB PO SCH (21:01)
[2023-06-05] MEDS: Acetaminophen 500 MG TAB PO SCH ×4 (00:10→17:25)
[2023-06-05] MEDS: LIDOCAINE Patch Removal TOP SCH (05:06)
[2023-06-05 06:46] LABS: ALT (SGPT) 11 U/L (8-55); AST (SGOT) 21 U/L (5-34); Albumin 3.5 g/dL (3.4-4.8); Alkaline Phosphatase 85 U/L (40-110); Anion Gap 12 mmol/L (10-20); BUN (Urea Nitrogen) 24 mg/dL (9.8-20.1); Bilirubin, Total 2.2 mg/dL (0.2-1.2); Calc. Creatinine Clearance 39 mL/min (70-130); Calcium 8.9 mg/dL (7.8-10.44); Carbon Dioxide 24 mmol/L (23-31); Chloride 106 mmol/L (98-107); Estimated GFR 37; Glucose 97 mg/dL (80-115); Potassium 4.6 mmol/L (3.5-5.1); Protein, Total 6.5 g/dL (5.8-8.1); Sodium 137 mmol/L (136-145)
[2023-06-05] MEDS: Ezetimibe 10 MG TAB PO SCH ×2 (08:14→20:11)
[2023-06-05] MEDS: Clopidogrel Bisulfate 75 MG TAB PO SCH (08:14)
[2023-06-05] MEDS: Aspirin 81 mg Enteric Coated Tablet PO SCH (08:14)
[2023-06-05] MEDS: Ursodiol 300 MG CAP PO SCH ×2 (08:16→20:12)
[2023-06-05] MEDS: cloNIDine 0.2 MG TAB PO SCH ×2 (08:17→20:09)
[2023-06-05] MEDS: Gabapentin 300 MG CAP PO SCH ×3 (08:17→20:11)
[2023-06-05] MEDS: Tacrolimus 1 MG CAP PO SCH ×2 (08:18→20:12)
[2023-06-05] MEDS: Loratadine 10 MG TAB PO SCH (08:19)
[2023-06-05] MEDS ORDERED: Lactated Ringer's 500 ML IV SCH (09:45)
[2023-06-05 12:16] VITALS: BMI 26.9
[2023-06-05] MEDS: Lidocaine 4% Patch TD SCH (15:25)
[2023-06-05] MEDS: Losartan 25 MG TAB PO SCH (20:10)
[2023-06-05] MEDS: Atorvastatin Calcium 40 MG TAB PO SCH (20:10)
[2023-06-06] MEDS: Acetaminophen 500 MG TAB PO SCH ×5 (00:36→21:00)
[2023-06-06] MEDS: LIDOCAINE Patch Removal TOP SCH (04:38)
[2023-06-06] MEDS: Clopidogrel Bisulfate 75 MG TAB PO SCH (09:09)
[2023-06-06] MEDS: Ezetimibe 10 MG TAB PO SCH ×2 (09:09→20:59)
[2023-06-06] MEDS: Aspirin 81 mg Enteric Coated Tablet PO SCH (09:09)
[2023-06-06] MEDS: cloNIDine 0.2 MG TAB PO SCH ×2 (09:09→20:59)
[2023-06-06] MEDS: Loratadine 10 MG TAB PO SCH (09:10)
[2023-06-06] MEDS: Gabapentin 300 MG CAP PO SCH ×3 (09:10→20:58)
[2023-06-06] MEDS: Ursodiol 300 MG CAP PO SCH ×2 (09:11→20:59)
[2023-06-06] MEDS: Tacrolimus 1 MG CAP PO SCH ×2 (09:11→21:08)
[2023-06-06 10:41] LABS: Hematocrit 30.4 % (36.0-47.0); Hemoglobin 9.3 g/dL (12.0-16.0); Mean Corpuscular HGB CONC 30.6 g/dL (32.0-36.0); Mean Corpuscular Hemoglobin 27.1 pg (27.0-31.0); Mean Corpuscular Volume 88.6 fl (78.0-98.0); Mean Platelet Volume 11.3 fL (7.4-10.4); RBC Distribution Width 16.6 % (11.5-14.5); Red Blood Cell (RBC) Count 3.43 mill/uL (4.20-5.40); White Blood Cell (WBC) Count 9.4 10x3/uL (4.8-10.8)
[2023-06-06 11:07] LABS: ALT (SGPT) 13 U/L (8-55); AST (SGOT) 21 U/L (5-34); Albumin 3.9 g/dL (3.4-4.8); Alkaline Phosphatase 109 U/L (40-110); Anion Gap 14 mmol/L (10-20); BUN (Urea Nitrogen) 23 mg/dL (9.8-20.1); Calc. Creatinine Clearance 38 mL/min (70-130); Calcium 9.3 mg/dL (7.8-10.44); Carbon Dioxide 21 mmol/L (23-31); Chloride 105 mmol/L (98-107); Estimated GFR 36; Globulin 3.2 g/dL (2.4-3.5); Glucose 143 mg/dL (80-115); Potassium 4.4 mmol/L (3.5-5.1); Protein, Total 7.1 g/dL (5.8-8.1); Sodium 136 mmol/L (136-145)
[2023-06-06 11:11] LABS: Platelet Count 140 10x3/uL (130-400)
[2023-06-06 11:13] LABS: Delete Auto Diff?? YES; Manual Diff?? YES
[2023-06-06 11:50] LABS: Anisocytosis SLIGHT = 6-15 cells HPF (0-5); Band 3 % (5-11); CellaVision Operator ID LAB.NR; Eosinophils 1 % (0-10); Large Platelets 0.8 % (0-5); Lymphocytes 18 % (21-51); Macrocytosis SLIGHT = 6-15 cells HPF (0-5); Monocytes 7 % (0-10); Neutrophil 70 % (42-75); Platelet Adequacy Comment Platelets Normal; Poikilocytosis SLIGHT = 6-15 cells HPF (0-5); Polychromasia SLIGHT = 2-3 cells HPF (0-2); Reactive Lymphocytes 1 % (0-10); Smudge Cells 0.8 %; Total Cell Count 118
[2023-06-06] MEDS: Lidocaine 4% Patch TD SCH (14:41)
[2023-06-06] MEDS: Losartan 25 MG TAB PO SCH (20:58)
[2023-06-06] MEDS: Atorvastatin Calcium 40 MG TAB PO SCH (20:59)
[2023-06-06 22:45] LABS: Creatinine, Urine 71.02 mg/dL (47-110)
[2023-06-07] MEDS: LIDOCAINE Patch Removal TOP SCH (01:36)
[2023-06-07 03:07] LABS: Tacrolimus 4.8 ng/mL (2.0-20.0)
[2023-06-07] MEDS: Acetaminophen 500 MG TAB PO SCH ×3 (04:30→14:31)
[2023-06-07 07:33] LABS: ALT (SGPT) 11 U/L (8-55); AST (SGOT) 20 U/L (5-34); Albumin 3.5 g/dL (3.4-4.8); Alkaline Phosphatase 93 U/L (40-110); Anion Gap 14 mmol/L (10-20); BUN (Urea Nitrogen) 19 mg/dL (9.8-20.1); Bilirubin, Total 0.7 mg/dL (0.2-1.2); Calc. Creatinine Clearance 48 mL/min (70-130); Calcium 9.1 mg/dL (7.8-10.44); Carbon Dioxide 22 mmol/L (23-31); Chloride 107 mmol/L (98-107); Estimated GFR 49; Glucose 120 mg/dL (80-115); Potassium 4.5 mmol/L (3.5-5.1); Protein, Total 6.5 g/dL (5.8-8.1); Sodium 138 mmol/L (136-145)
[2023-06-07 07:48] LABS: #Eosinphils 0.1 thou/uL (0.0-0.7); #Monocytes 0.4 thou/uL (0.11-0.59); #Neutrophils 2.7 thou/uL (1.40-6.50); %Basophils 0.4 % (0.0-1.0); %Eosinophils 1.6 % (0.0-10.0); %Lymphocytes 26.6 % (21.0-51.0); %Monocytes 8.6 % (0.0-10.0); %Neutrophils 60.6 % (42.0-75.0); Hematocrit 27.7 % (36.0-47.0); Hemoglobin 8.4 g/dL (12.0-16.0); Mean Corpuscular HGB CONC 30.3 g/dL (32.0-36.0); Mean Corpuscular Hemoglobin 26.9 pg (27.0-31.0); Mean Corpuscular Volume 88.8 fl (78.0-98.0); Mean Platelet Volume 12.5 fL (7.4-10.4); Platelet Count 112 10x3/uL (130-400); RBC Distribution Width 16.6 % (11.5-14.5); Red Blood Cell (RBC) Count 3.12 mill/uL (4.20-5.40); White Blood Cell (WBC) Count 4.5 10x3/uL (4.8-10.8)
[2023-06-07] MEDS: Clopidogrel Bisulfate 75 MG TAB PO SCH (08:55)
[2023-06-07] MEDS: cloNIDine 0.2 MG TAB PO SCH ×2 (08:55→20:46)
[2023-06-07] MEDS: Loratadine 10 MG TAB PO SCH (08:55)
[2023-06-07] MEDS: Tacrolimus 1 MG CAP PO SCH ×2 (08:56→20:50)
[2023-06-07] MEDS: Ursodiol 300 MG CAP PO SCH ×2 (08:56→20:50)
[2023-06-07] MEDS: Ezetimibe 10 MG TAB PO SCH ×2 (08:56→20:45)
[2023-06-07] MEDS: Aspirin 81 mg Enteric Coated Tablet PO SCH (08:56)
[2023-06-07] MEDS: Gabapentin 300 MG CAP PO SCH ×3 (08:57→20:48)
[2023-06-07] MEDS: Lidocaine 4% Patch TD SCH (14:15)
[2023-06-07] MEDS: Losartan 25 MG TAB PO SCH (20:45)
[2023-06-07] MEDS: Atorvastatin Calcium 40 MG TAB PO SCH (20:46)
[2023-06-07] MEDS: Mycophenolate 250 MG CAP PO SCH (20:47)
[2023-06-08] MEDS: Acetaminophen 500 MG TAB PO SCH ×4 (00:44→18:29)
[2023-06-08 06:51] LABS: #Eosinphils 0.1 thou/uL (0.0-0.7); #Monocytes 0.4 thou/uL (0.11-0.59); #Neutrophils 2.2 thou/uL (1.40-6.50); %Basophils 0.5 % (0.0-1.0); %Lymphocytes 28.6 % (21.0-51.0); %Monocytes 11.3 % (0.0-10.0); Hematocrit 26.7 % (36.0-47.0); Hemoglobin 8.4 g/dL (12.0-16.0); Mean Corpuscular HGB CONC 31.5 g/dL (32.0-36.0); Mean Corpuscular Hemoglobin 27.5 pg (27.0-31.0); Mean Corpuscular Volume 87.5 fl (78.0-98.0); Mean Platelet Volume 12.2 fL (7.4-10.4); Platelet Count 102 10x3/uL (130-400); RBC Distribution Width 16.5 % (11.5-14.5); Red Blood Cell (RBC) Count 3.05 mill/uL (4.20-5.40); White Blood Cell (WBC) Count 3.9 10x3/uL (4.8-10.8)
[2023-06-08 07:21] LABS: ALT (SGPT) 8 U/L (8-55); AST (SGOT) 17 U/L (5-34); Albumin 3.5 g/dL (3.4-4.8); Alkaline Phosphatase 95 U/L (40-110); Anion Gap 12 mmol/L (10-20); BUN (Urea Nitrogen) 20 mg/dL (9.8-20.1); Bilirubin, Total 0.7 mg/dL (0.2-1.2); Calc. Creatinine Clearance 43 mL/min (70-130); Calcium 8.6 mg/dL (7.8-10.44); Carbon Dioxide 21 mmol/L (23-31); Chloride 106 mmol/L (98-107); Estimated GFR 42; Globulin 2.9 g/dL (2.4-3.5); Glucose 121 mg/dL (80-115); Potassium 4.3 mmol/L (3.5-5.1); Protein, Total 6.4 g/dL (5.8-8.1); Sodium 135 mmol/L (136-145)
[2023-06-08] MEDS: cloNIDine 0.2 MG TAB PO SCH ×2 (08:52→22:05)
[2023-06-08] MEDS: Clopidogrel Bisulfate 75 MG TAB PO SCH (08:52)
[2023-06-08] MEDS: Aspirin 81 mg Enteric Coated Tablet PO SCH (08:52)
[2023-06-08] MEDS: Gabapentin 300 MG CAP PO SCH ×3 (08:52→22:13)
[2023-06-08] MEDS: Ezetimibe 10 MG TAB PO SCH ×2 (08:52→22:13)
[2023-06-08] MEDS: Tacrolimus 1 MG CAP PO SCH ×2 (08:53→22:16)
[2023-06-08] MEDS: Ursodiol 300 MG CAP PO SCH ×2 (08:53→22:15)
[2023-06-08] MEDS: Loratadine 10 MG TAB PO SCH (08:53)
[2023-06-08] MEDS: Mycophenolate 250 MG CAP PO SCH ×2 (08:53→22:11)
[2023-06-08] MEDS ORDERED: Polyethylene Glycol 3350 17 GM Packet PO PRN (11:16)
[2023-06-08] MEDS: Lidocaine 4% Patch TD SCH (16:04)
[2023-06-08] MEDS: Losartan 25 MG TAB PO SCH (22:00)
[2023-06-08] MEDS: Atorvastatin Calcium 40 MG TAB PO SCH (22:13)
[2023-06-09] MEDS: Acetaminophen 500 MG TAB PO SCH ×4 (00:31→18:28)
[2023-06-09] MEDS: LIDOCAINE Patch Removal TOP SCH (03:12)
[2023-06-09] MEDS: Mycophenolate 250 MG CAP PO SCH ×2 (09:23→20:23)
[2023-06-09] MEDS: Loratadine 10 MG TAB PO SCH (09:23)
[2023-06-09] MEDS: Clopidogrel Bisulfate 75 MG TAB PO SCH (09:23)
[2023-06-09] MEDS: Aspirin 81 mg Enteric Coated Tablet PO SCH (09:23)
[2023-06-09] MEDS ORDERED: cloNIDine 0.2 MG TAB PO SCH (09:23)
[2023-06-09] MEDS: Gabapentin 300 MG CAP PO SCH ×3 (09:23→20:24)
[2023-06-09] MEDS: Ezetimibe 10 MG TAB PO SCH ×2 (09:23→20:24)
[2023-06-09] MEDS: Tacrolimus 1 MG CAP PO SCH ×2 (09:24→20:25)
[2023-06-09] MEDS: Ursodiol 300 MG CAP PO SCH ×2 (09:24→20:24)
[2023-06-09] MEDS ORDERED: cloNIDine 0.1 MG TAB PO SCH (10:00)
[2023-06-09] MEDS: cloNIDine 0.2 MG TAB PO SCH (10:54)
[2023-06-09] MEDS: Lidocaine 4% Patch TD SCH (15:59)
[2023-06-09] MEDS: cloNIDine 0.1 MG TAB PO SCH (20:24)
[2023-06-09] MEDS: Losartan 25 MG TAB PO SCH (20:24)
[2023-06-09] MEDS: Atorvastatin Calcium 40 MG TAB PO SCH (20:25)
[2023-06-09] MEDS: DULAGLUTIDE 3 MG/0.5 ML SC SCH (20:26)
[2023-06-10] MEDS: Acetaminophen 500 MG TAB PO SCH ×4 (00:09→11:21)
[2023-06-10] MEDS: LIDOCAINE Patch Removal TOP SCH (03:02)
[2023-06-10 08:23] VITALS: TEMP 98.2
[2023-06-10] MEDS: Tacrolimus 1 MG CAP PO SCH (08:40)
[2023-06-10] MEDS: Aspirin 81 mg Enteric Coated Tablet PO SCH (08:40)
[2023-06-10] MEDS: Gabapentin 300 MG CAP PO SCH (08:40)
[2023-06-10] MEDS: Ursodiol 300 MG CAP PO SCH (08:40)
[2023-06-10] MEDS: Clopidogrel Bisulfate 75 MG TAB PO SCH (08:40)
[2023-06-10] MEDS: Loratadine 10 MG TAB PO SCH (08:40)
[2023-06-10] MEDS: cloNIDine 0.1 MG TAB PO SCH (08:40)
[2023-06-10] MEDS: Ezetimibe 10 MG TAB PO SCH (08:41)
[2023-06-10] MEDS: Mycophenolate 250 MG CAP PO SCH (08:43)
[2023-06-10 12:02] VITALS: BP 131/77
== END 2023-06-10 12:51 | disposition home or self-care (01) | DRG 607 ==
LOC: 2NO 18:00 → UNDOADMOB 18:28 → UNDODISOB 18:36 → T4-B 05-29 12:48 → OBSVTOIN 05-29 17:36
PROVIDERS: ADMIT Family Medicine; ATTEND Family Medicine
DX: R21 Rash and other nonspecific skin eruption (principal); Z94.4 Liver transplant status; I69.354 Hemiplegia and hemiparesis following cerebral infarction affecting left non-dominant side; N17.9 Acute kidney failure, unspecified; D61.818 Other pancytopenia; I12.9 Hypertensive chronic kidney disease with stage 1 through stage 4 chronic kidney disease, or unspecified chronic kidney disease; E78.5 Hyperlipidemia, unspecified; Z66 Do not resuscitate; I25.10 Atherosclerotic heart disease of native coronary artery without angina pectoris; K21.9 Gastro-esophageal reflux disease without esophagitis; D63.1 Anemia in chronic kidney disease; E11.22 Type 2 diabetes mellitus with diabetic chronic kidney disease; M94.0 Chondrocostal junction syndrome [Tietze]; D70.9 Neutropenia, unspecified; N18.9 Chronic kidney disease, unspecified; Z91.041 Radiographic dye allergy status; Z79.899 Other long term (current) drug therapy; Z79.02 Long term (current) use of antithrombotics/antiplatelets; Z79.82 Long term (current) use of aspirin; Z79.4 Long term (current) use of insulin; Z95.1 Presence of aortocoronary bypass graft; Z87.891 Personal history of nicotine dependence; Z95.5 Presence of coronary angioplasty implant and graft; I25.2 Old myocardial infarction; Z85.05 Personal history of malignant neoplasm of liver; Z90.49 Acquired absence of other specified parts of digestive tract
CPT/HCPCS: 36415; 36416; 71275; 80048; 80053; 80197; 82570; 83605; 83880; 84300; 84484; 85025; 85060; 85379; 85652; 86140; 87040; 93005; 93010; 93306; 93923; 96365; 96366; 96367; 96372; 96375; G0378; J0692; J1200; J1447; J1650; J2920; J3370; J7120; J7507; J7517; Q0162; Q9967; S0028